=== PATIENT | female | born 1950 | race Caucasian/White ===

== ENCOUNTER 2016-12-22 04:56 | Inpatient (IN) | payer OTHER, MEDICARE ==
[2016-12-03 13:04] VITALS: BMI 35.0
--- NOTE | 2016-12-03 13:44 | PAT Medication Instructions ---
Service Date Dec 03, 2016. Current Home Medication List Aspirin (Aspirin Ec), 81 MG PO QAM Bupropion (Wellbutrin), 75 MG PO QAM Calcium/Vitamin D (Os-Cem 500 Plus D), 1 TAB PO QAM Diclofenac Sodium (Topical) (Voltaren 1% Top Gel), 1 DOSE TOP UD PRN for Pain Duloxetine Hcl (Cymbalta), 60 MG PO QAM Epinephrine (Epipen), 0.3 MG IM UD Ferrous Sulfate (Iron), 1 TAB PO QAM Levothyroxine Sodium (Synthroid), 150 MCG PO QAM Meloxicam (Mobic), 15 MG PO QAM Metoprolol Succ (Toprol Xl) (Toprol-Xl), 25 MG PO HS Multivitamin (Multivitamin), 1 TAB PO QAM Oxycodone HCl (Oxycontin), 5 MG PO QPM Pramipexole Dihydrochloride (Pramipexole Dihydrochlori), 2 MG PO QPM Pravastatin (Pravachol ), 20 MG PO HS Medication Instructions For Your Scheduled Surgery Meloxicam (Mobic), 15 MG PO QAM (check with surgeon for instructions) - Hold the following medications 24 hours prior to surgery: Diclofenac Sodium (Topical) (Voltaren 1% Top Gel), 1 DOSE TOP UD PRN for Pain - Hold the following medications the morning of surgery: Multivitamin (Multivitamin), 1 TAB PO QAM Ferrous Sulfate (Iron), 1 TAB PO QAM Calcium/Vitamin D (Os-Cem 500 Plus D), 1 TAB PO QAM - Take the following medications the morning of surgery with a sip of water: Levothyroxine Sodium (Synthroid), 150 MCG PO QAM Duloxetine Hcl (Cymbalta), 60 MG PO QAM Epinephrine (Epipen), 0.3 MG IM UD (if needed) Bupropion (Wellbutrin), 75 MG PO QAM Aspirin (Aspirin Ec), 81 MG PO QAM (continue per surgeon instructions) - Hold the following medications as scheduled the night before surgery: Pramipexole Dihydrochloride (Pramipexole Dihydrochlori), 2 MG PO QPM - Take the following medications as scheduled the night before surgery: Pravastatin (Pravachol ), 20 MG PO HS Oxycodone HCl (Oxycontin), 5 MG PO QPM Metoprolol Succ (Toprol Xl) (Toprol-Xl), 25 MG PO HS If you have any questions please call us at [phone] (Dipti Jones PA-C) or [phone] or [phone]
--- NOTE | 2016-12-03 14:12 | DIAGNOSTIC IMAGING REPORT ---
CHEST 2 VIEWS ROUTINE CLINICAL HISTORY: Preoperative evaluation. COMPARISON STUDY: Chest radiograph November 22, 2015. FINDINGS: Lung volumes are mildly diminished. There is no consolidation to suggest pneumonia. There is no evidence of pulmonary edema. Linear right lower lung opacities likely reflect atelectasis or scarring. Mild to moderate cardiomegaly is unchanged. IMPRESSION: 1. No acute cardiopulmonary findings. 2. No significant change in mild to moderate cardiomegaly. Electronically signed by: Huy Key M.D. 12/03/2016 2:11 PM Dictated Date/Time: 12/03/2016 2:10 PM
[2016-12-03 14:24] LABS: BASO % 0.4 %; BASO ABS # 0.03 K/uL (0-0.2); COMPLETE YES; EOS % 2.9 %; HEMATOCRIT 42.7 % (37-47); IG% 0.1 %; LYMPH % 21.3 %; LYMPH ABS # 1.46 K/uL (1.2-3.4); MEAN CORPUSCULAR HEMOGLOBIN 29.6 pg (25-34); MEAN CORPUSCULAR HGB CONC 33.3 g/dl (32-36); MEAN PLATELET VOLUME 9.7 fL (7.4-10.4); MONO % 8.2 %; NEUT % 67.1 %; PLATELET COUNT 217 K/uL (130-400); WHITE BLOOD COUNT 6.84 K/uL (4.8-10.8)
[2016-12-03 14:38] LABS: PARTIAL THROMBOPLASTIN RATIO 1.2; PROTHROMBIN TIME (PATIENT) 10.7 SECONDS (9.0-12.0)
[2016-12-03 14:54] LABS: CALCIUM 8.9 mg/dl (8.5-10.1); CREATININE 0.76 mg/dl (0.60-1.20); POTASSIUM 4.5 mmol/L (3.5-5.1)
[2016-12-03 15:14] LABS: URINE APPEARANCE CLEAR (CLEAR); URINE BILIRUBIN NEG (NEG); URINE COLOR YELLOW; URINE EPITHELIAL CELL AUTO >30 /lpf (0-5); URINE NITRITE NEG (NEG); URINE PH 6.5 (4.5-7.5); URINE SPECIFIC GRAVITY 1.023 (1.000-1.030); UROBILINOGEN NEG (NEG); ZZUR CULT IF INDIC CLEAN CATCH NO
[2016-12-03 15:18] LABS: MANUAL MICROSCOPIC REQUIRED? NO; REVIEW REQ? NO
--- NOTE | 2016-12-21 14:53 | HISTORY & PHYSICAL EXAMINATION ---
DATE OF ADMISSION: 12/22/2016 CHIEF COMPLAINT: Left hip pain. HISTORY OF PRESENT ILLNESS: Prachi is a 66-year-old female with a multiple-year history of pain in her left hip. The patient had her knee replaced in 2016 and then has had continued pain in the left side, over the last 6 months. She rates her pain an 8-9/10. She has had home exercise program, trochanteric injections, and anti-inflammatories without relief. She has failed conservative treatment and is now scheduled for a left hip replacement. PAST MEDICAL HISTORY: Thyroid disease and acid reflux, questionable history of TIA, hypercholesterolemia, anxiety, and history of phlebitis. She denies diabetes, heart disease or DVT. PAST SURGICAL HISTORY: Hysterectomy, left knee meniscectomy, left breast biopsy, biopsy of thyroid and left total knee arthroplasty. SOCIAL HISTORY: The patient denies alcohol or tobacco use. She lives in a single connie home. She is and retired. FAMILY HISTORY: Negative for DVT. MEDICATIONS: Synthroid 0.15 mg daily, Cymbalta 60 mg daily, Meloxicam 15 mg daily, bupropion 75 mg daily, aspirin 81 mg daily, calcium 600 plus D, multivitamin, iron 325 mg, Mirapex 1 mg 2 tablets at bedtime, pravastatin 20 mg daily, metoprolol 25 mg daily, Voltaren gel p.r.n., oxycodone p.r.n., EpiPen 0.3 mg p.r.n. ALLERGIES: None. REVIEW OF SYSTEMS: See HPI. Ten other systems reviewed, all negative. PHYSICAL EXAMINATION: VITAL SIGNS: Height 5 foot 4 inches, weight 211 pounds, BMI 36. GENERAL: This is a well-developed, well-nourished female who is alert and oriented x3. Mood and affect are appropriate. HEENT: Normocephalic, atraumatic. Mucous membranes are moist and intact. NECK: Supple without lymphadenopathy. HEART: Regular rate and rhythm without murmurs, rubs or gallops. LUNGS: Clear to auscultation without wheezes or rhonchi. ABDOMEN: Soft and nontender. Bowel sounds are equal and active. EXTREMITIES: No ecchymosis, redness or warmth. Thigh and calf are soft and nontender. She has painful range of motion. Range of motion is decreased. She is neurovascularly intact with +5/5 strength. She does have some tenderness noted over the lateral aspect of the left knee. X-RAY EXAMINATION: AP and lateral views show joint space narrowing and osteophyte formation of the left hip. IMPRESSION: Degenerative joint disease, left hip. PLAN: The patient will be admitted for a left total hip arthroplasty, direct anterior approach. We will plan on aspirin for DVT prophylaxis. The patient's PCP is Dr. Marci Navarro with [facility]. The patient will have [facility] for home physical therapy.
[2016-12-22] VITALS (10 sets, daily range): BP systolic 105–135; BP diastolic 55–75; PULSE 73–87; TEMP 36.5–36.9; O2SAT 92–99; Ht 162.6 cm; Wt 94.0 kg
[~2016-12-22] VITALS: Ht 162.6 cm; Wt 94.0 kg
[~2016-12-22 04:56] MED LIST: ASPI81TA28 PO; BUPR75TA20 PO; CALC500C70 PO; DICL1GEL12 TOP; DULO60CA44 PO; EPP3/2 IM; FERR1TAB23 PO; LEVO150T PO; MELO7.5T5 PO; METO25TA3 PO; MULT-506 PO; OXYSR/10 PO; PRAM1TAB6 PO; PRAV20TA PO
[2016-12-22] MEDS ORDERED: METOCLOPRAMIDE HCL 10 MG TAB PO SCH (06:00)
[2016-12-22] MEDS ORDERED: FAMOTIDINE 20 MG TAB PO SCH (06:00)
[2016-12-22] MEDS: LEVOTHYROXINE 150 MCG TAB PO SCH (06:00)
[2016-12-22] MEDS ORDERED: VANCOMYCIN INJ 400 MG in NSS 100ML IR SCH (06:00)
[2016-12-22] MEDS ORDERED: OXYCODONE HCL 10 MG TABCR (OXYCONTIN) PO SCH (06:00)
[2016-12-22] MEDS ORDERED: CeleBREX 200 MG CAP PO SCH (06:00)
[2016-12-22] MEDS ORDERED: GABAPENTIN 300 MG CAP PO SCH (06:00)
[2016-12-22] MEDS ORDERED: ACETAMINOPHEN 500 MG TAB PO SCH (06:00)
[2016-12-22] MEDS ORDERED: LACTATED RINGER'S 1000ML 500 ML IV ONE (06:00)
[2016-12-22] MEDS ORDERED: DEXAMETHASONE 4 MG TAB PO SCH (06:00)
[2016-12-22] MEDS ORDERED: ROPIVACAINE 5MG/ML 30 ML 150 MG, BUPIVACAINE/EPINEPHR 0.5% MPF 30 ML, KETOROLAC TROMETH... INFIL SCH ×7 (06:00)
[2016-12-22] MEDS ORDERED: LACTATED RINGER'S 1000ML IV SCH (06:00)
[2016-12-22] MEDS ORDERED: POLYMYXIN B SULFATE 100,000 UNITS in NSS 100ML IR SCH (06:00)
[2016-12-22] MEDS ORDERED: CEFAZOLIN 2000 MG/60 ML D5W 60 ML IV SCH (06:00)
[2016-12-22] MEDS ORDERED: LACTATED RINGER'S 1000ML 1,000 ML IV SCH (06:00)
[2016-12-22] MEDS ORDERED: BUPIVACAINE 0.5 % 5 MG/1 ML PF 10ML VIAL ONE (06:23)
[2016-12-22] MEDS: TRANEXAMIC ACID INJ 1,000 MG in SODIUM CHLORIDE 0.9% 100ML 100 ML IV SCH (06:30)
[2016-12-22] MEDS ORDERED: PROPOFOL IV EMULSION 10 MG/ML 20 ML VIAL IV ONE ×2 (06:40→07:48)
[2016-12-22] MEDS ORDERED: FENTANYL CITRATE INJ 50 MCG/1 ML 2 ML VIAL ONE (06:41)
[2016-12-22] MEDS ORDERED: MIDAZOLAM HCL 1 MG/ML 2ML VIAL ONE (06:41)
--- NOTE | 2016-12-22 06:44 | History & Physical Bridge Note ---
H&P Re-Evaluation Bridge Note: I have examined the patient, reviewed the History & Physical and in the interval since the performance of the History & Physical I have noted the following changes of clinical significance: No changes noted
[2016-12-22] MEDS ORDERED: ORTHO JOINT ANESTHETIC ONE (06:55)
[2016-12-22] MEDS ORDERED: BACITRACIN 50000 UNIT VIAL ONE (06:55)
[2016-12-22] MEDS ORDERED: POVIDONE-IODINE OP SOLN 30 ML BTL ONE (06:55)
[2016-12-22] MEDS ORDERED: LACTATED RINGER'S 1000ML 1,000 ML IV PRN (07:31)
[2016-12-22] MEDS ORDERED: ONDANSETRON INJ 2 MG/ML 2 ML VIAL IV PRN ×2 (07:45→08:45)
[2016-12-22] MEDS ORDERED: FENTANYL CITRATE INJ 50 MCG/1 ML 2 ML VIAL IV PRN (07:45)
[2016-12-22] MEDS ORDERED: LIDOCAINE HCL 2% 2 ML VIAL (20MG/ML) ONE (07:48)
[2016-12-22] MEDS ORDERED: PHENYLEPHRINE HCL INJ 10 MG/ML VIAL ONE (07:48)
[2016-12-22] MEDS ORDERED: ONDANSETRON INJ 2 MG/ML 2 ML VIAL ONE (08:36)
--- NOTE | 2016-12-22 08:38 | [facility] Post Operative Brief Note ---
Immediate Operative Summary Operative Date Dec 22, 2016. Pre-Operative Diagnosis Left hip degenerative joint disease Post-Operative Diagnosis Left hip degenerative joint disease OBESITY Procedure(s) Performed Left total hip arthoplasty, anterior approach, uncemented Surgeon Dr. Ran Almodovar Product Demonstrator Surgeon(s) Maribel Castano PA-C Estimated Blood Loss 150 cc Findings djd Specimens A: Left femoral head Complication(s) None Disposition Recovery Room / PACU
[2016-12-22] MEDS ORDERED: MoRPHine SULFATE 2 MG/ML CARP IV PRN (08:45)
[2016-12-22] MEDS ORDERED: TRAMADOL HCL 50 MG TAB PO PRN (08:45)
[2016-12-22] MEDS ORDERED: ZOLPIDEM TARTRATE 5 MG TAB PO PRN (08:45)
[2016-12-22] MEDS ORDERED: SOD PHOSPHATE/SOD BIPHOSPHATE ENEMA 132 ML BTL PR PRN (08:45)
[2016-12-22] MEDS ORDERED: ALUMINUM/MAGNESIUM/SIMETH (MAALOX MAX) 30 ML UDC PO PRN (08:45)
[2016-12-22] MEDS ORDERED: DiphenhydrAMINE HCL 50 MG/ML VIAL IV PRN (08:45)
[2016-12-22] MEDS ORDERED: METOCLOPRAMIDE HCL INJ 5 MG/ML 2 ML VIAL IV PRN (08:45)
[2016-12-22] MEDS ORDERED: BISACODYL 10 MG SUPP PR PRN (08:45)
[2016-12-22] MEDS ORDERED: MAGNESIUM HYDROXIDE SUSP 30 ML UDC PO PRN (08:45)
--- NOTE | 2016-12-22 09:37 | DIAGNOSTIC IMAGING REPORT ---
LEFT PELVIS/UNILATERAL HIP 1 VIEW CLINICAL HISTORY: IN PACU - A/P PELVIS and LATERAL HIP INCLUDING ALL OF IMPLANT COMPARISON: None. DISCUSSION: Anatomic alignment status post total left hip replacement. Good contact between prosthetic and the Bone. Expected soft tissue postoperative change IMPRESSION: Anatomic alignment status post total left hip replacement Electronically signed by: Danny Rosas M.D. 12/22/2016 9:36 AM Dictated Date/Time: 12/22/2016 9:35 AM
--- NOTE | 2016-12-22 09:49 | Anesthesiology Progress Note ---
Anesthesia Post Op Note Date & Time Dec 22, 2016 at 09:49 Vital Signs Pain Intensity: 0 Vital Signs Past 12 Hours Date Time Temp Pulse Resp B/P Pulse Ox O2 Delivery O2 Flow Rate FiO2 12/22/16 09:45 78 12 107/53 97 Nasal Cannula 2 12/22/16 09:35 36.2 75 19 108/54 97 Nasal Cannula 2 12/22/16 09:25 75 15 111/56 100 Mask 10 12/22/16 09:15 75 15 97/57 99 Mask 10 12/22/16 09:07 36.8 77 21 102/61 97 Mask 10 12/22/16 05:51 36.5 78 20 135/69 99 Room Air Notes Mental Status: alert / awake / arousable, participated in evaluation Pt Amnestic to Procedure: Yes Nausea / Vomiting: adequately controlled Pain: adequately controlled Airway Patency, RR, SpO2: stable & adequate BP & HR: stable & adequate Hydration State: stable & adequate Neuraxial Anesthesia: was administered, sensory block is resolving Anesthetic Complications: no major complications apparent
--- NOTE | 2016-12-22 10:01 | DIAGNOSTIC IMAGING REPORT ---
LEFT HIP UNILATERAL 1 VIEW CLINICAL HISTORY: LT ANTERIOR TOTAL joint replacement COMPARISON: None. DISCUSSION: Total left hip replacement. Good contact between prosthetic and underlying bone expected soft tissue postoperative change IMPRESSION: Anatomic alignment status post total left hip replacement Electronically signed by: Danny Rosas M.D. 12/22/2016 9:59 AM Dictated Date/Time: 12/22/2016 9:59 AM
[2016-12-22] MEDS: D5W AND 1/2NSS + 20MEQ KCL 1,000 ML IV SCH ×2 (11:42→21:43)
[2016-12-22] MEDS: KETOROLAC TROMETHAMINE 15 MG/ML VIAL IV. SCH ×2 (11:45→17:57)
[2016-12-22] MEDS: CALCIUM 600MG + VIT D 400 IU TAB PO SCH (12:39)
[2016-12-22] MEDS: DULOXETINE HCL 60 MG CAP PO SCH (12:40)
[2016-12-22] MEDS: FERROUS SULFATE 325 MG TAB PO SCH (12:40)
[2016-12-22] MEDS: MULTIVITAMIN TAB PO SCH (12:40)
[2016-12-22] MEDS: PANTOprazole SOD 40 MG TAB PO SCH (12:41)
[2016-12-22] MEDS: ACETAMINOPHEN 500 MG TAB PO SCH ×2 (13:55→21:44)
[2016-12-22] MEDS ORDERED: TRANEXAMIC ACID INJ 1,000 MG in SODIUM CHLORIDE 0.9% 100ML 100 ML IV SCH (15:00)
[2016-12-22] MEDS: OXYCODONE HCL IR 5 MG TAB (IMMEDIATE RELEASE) PO PRN (15:50)
[2016-12-22] MEDS: CEFAZOLIN IV 2,000 MG in DEXTROSE 5% 50ML 50 ML IV SCH (15:58)
--- NOTE | 2016-12-22 16:35 | OPERATIVE REPORT ---
DATE OF OPERATION: 12/22/2016 PREOPERATIVE DIAGNOSIS: Degenerative arthritis, left hip. POSTOPERATIVE DIAGNOSIS: Same. PROCEDURE: Left total hip replacement. SURGEON: Samuel Almodovar MD WATERPROOFING MIXER: DOROTEO Willard ANESTHESIA: Spinal. BLOOD LOSS: 150 mL. REPLACEMENT FLUIDS: 1800 mL of crystalloid. DRAINS: Hemovacs x1. CULTURES: None. COMPLICATIONS: None. COMPONENTS USED: [employer] hip system: Acetabulum size 50, femur size 5 standard offset, femoral head 0, neck length 32 mm. NOTE: DOROTEO Willard was present and assisted throughout due to the complicated nature of this case. She helped with preparation and set up. She first assisted throughout and personally closed the fascial, subcutaneous and skin layers and applied the postoperative dressing. DESCRIPTION: Following satisfactory spinal, the patient was supine. The left leg was placed in the traction device and the right leg in the well leg mercedes. The left leg was prepared with ChloraPrep and draped sterilely. Following a surgical time-out, an anterior approach was performed in the interval between the sartorius and tensor muscles. The circumflex femoral vessels were identified and ligated. The exposure was difficult, the patient had extremely poor body habitus, tensor muscle was extremely poor and was noted to be torn. An anterior capsulotomy was performed exposing the arthritic femoral neck and head which were removed. The acetabular self-retraining retractor was placed, acetabular preparation and reaming was completed and a 50 shell was impacted into position and secured with a dome screw, cross-linked polyethylene liner was placed after local anesthetic and irrigation. The femur was placed into position of external rotation, extension and adduction. The femoral canal was identified and prepared up to the size 5. Exposure was difficult because of the patient's large belly and extremely obese body habitus. Fluoroscopy confirmed good fit and fill of the proximal canal and moravian of leg lengths using anatomic landmarks. The hip was dislocated, the trial component was removed, the final implant was placed and fluoroscopy confirmed reduction. A Betadine soak was performed. The Betadine was irrigated and the drain was placed. The capsule was closed with 1-0 Vicryl interrupted. The fascia with 1-0 Vicryl running. After irrigation, the fatty layer was closed with 1 and 2-0 Vicryl and the skin was closed with a running subcuticular stitch of 3-0 V-Loc. Dermabond and a dry dressing were applied. The patient was returned to her bed in stable condition. I attest to the content of the Intraoperative Record and any orders documented therein. Any exceptio ns are noted below.
[2016-12-22] MEDS: PRAMIPEXOLE DIHYDROCHLORIDE 0.5 MG TAB PO SCH (17:23)
[2016-12-22] MEDS: ASPIRIN 81 MG ECTAB PO SCH (21:43)
[2016-12-22] MEDS: PRAVASTATIN SOD 20 MG TAB PO SCH (21:43)
[2016-12-22] MEDS: SENNA 8.6 MG TAB PO SCH (21:44)
[2016-12-22] MEDS: METOPROLOL SUCC 25MG EXT REL TAB PO SCH (21:44)
[2016-12-23] VITALS (7 sets, daily range): BP systolic 104–146; BP diastolic 63–96; PULSE 71–86; TEMP 36.5–37.1; O2SAT 92–97
[2016-12-23] MEDS: KETOROLAC TROMETHAMINE 15 MG/ML VIAL IV. SCH ×4 (00:14→17:26)
[2016-12-23] MEDS: CEFAZOLIN IV 2,000 MG in DEXTROSE 5% 50ML 50 ML IV SCH (00:14)
[2016-12-23] MEDS: OXYCODONE HCL IR 5 MG TAB (IMMEDIATE RELEASE) PO PRN ×5 (00:15→19:14)
[2016-12-23] MEDS: LEVOTHYROXINE 150 MCG TAB PO SCH (06:06)
[2016-12-23] MEDS: D5W AND 1/2NSS + 20MEQ KCL 1,000 ML IV SCH (06:07)
[2016-12-23] MEDS: ACETAMINOPHEN 500 MG TAB PO SCH ×3 (06:07→21:49)
[2016-12-23 07:47] LABS: BASO % 0.1 %; BASO ABS # 0.02 K/uL (0-0.2); COMPLETE YES; EOS % 0.2 %; IG% 0.2 %; LYMPH % 9.3 %; LYMPH ABS # 1.26 K/uL (1.2-3.4); MEAN CELL VOLUME 87.5 fL (80-100); MEAN CORPUSCULAR HEMOGLOBIN 29.1 pg (25-34); MEAN CORPUSCULAR HGB CONC 33.2 g/dl (32-36); MEAN PLATELET VOLUME 9.5 fL (7.4-10.4); NEUT % 83.2 %; PLATELET COUNT 213 K/uL (130-400); RED BLOOD COUNT 4.23 M/uL (4.2-5.4)
--- NOTE | 2016-12-23 08:08 | Orthopedic Progress Note ---
Orthopedic Progress Note Date of Service Dec 23, 2016. Subjective Post OP Day: 1 Reports: feeling well, Denies: SOB, calf pain, chest pain, light headedness, nausea / vomiting Objective calves soft nontender, N/V intact, hip located, dressing C/D/I (AQUACEL), A&O x3 , toes mobile, hemovac drainage (330/80CC PER SHIFT) Date Time Temp Pulse Resp B/P Pulse Ox O2 Delivery O2 Flow Rate FiO2 12/23/16 03:49 36.6 73 16 104/63 96 Room Air 12/23/16 00:10 Room Air 12/22/16 23:30 36.9 80 16 115/66 94 Room Air 12/22/16 21:35 85 117/68 12/22/16 16:00 Room Air 12/22/16 15:34 36.5 82 16 113/55 92 Room Air 12/22/16 12:54 83 16 123/68 92 Room Air 12/22/16 11:53 87 16 105/66 96 Nasal Cannula 2.0 12/22/16 10:53 73 16 108/69 99 Nasal Cannula 2.0 12/22/16 10:25 75 16 122/75 99 Nasal Cannula 2.0 12/22/16 09:55 97 Nasal Cannula 2.0 12/22/16 09:55 97 Nasal Cannula 2.0 12/22/16 09:55 36.5 82 16 105/73 97 Nasal Cannula 2.0 12/22/16 09:45 78 12 107/53 97 Nasal Cannula 2 12/22/16 09:35 36.2 75 19 108/54 97 Nasal Cannula 2 12/22/16 09:25 75 15 111/56 100 Mask 10 12/22/16 09:15 75 15 97/57 99 Mask 10 12/22/16 09:07 36.8 77 21 102/61 97 Mask 10 Laboratory Results 24 Hours: Test 12/23/16 07:07 White Blood Count 13.60 K/uL Red Blood Count 4.23 M/uL Hemoglobin 12.3 g/dL Hematocrit 37.0 % Mean Corpuscular Volume 87.5 fL Mean Corpuscular Hemoglobin 29.1 pg Mean Corpuscular Hemoglobin Concent 33.2 g/dl Platelet Count 213 K/uL Mean Platelet Volume 9.5 fL Neutrophils (%) (Auto) 83.2 % Lymphocytes (%) (Auto) 9.3 % Monocytes (%) (Auto) 7.0 % Eosinophils (%) (Auto) 0.2 % Basophils (%) (Auto) 0.1 % Neutrophils # (Auto) 11.31 K/uL Lymphocytes # (Auto) 1.26 K/uL Monocytes # (Auto) 0.95 K/uL Eosinophils # (Auto) 0.03 K/uL Basophils # (Auto) 0.02 K/uL Assessment & Plan Assessment: POD#1 SP LEFT CHELSEA, DIRECT ANTERIOR Inhouse Planning Pain Management: Celebrex, PO Tylenol, Oxy IR DVT Prophylaxis: TEDs, SCDs, ASA Discharge Planning Discharge Planning: home with home health ([facility])
[2016-12-23] MEDS ORDERED: SNK PO (08:11)
[2016-12-23] MEDS ORDERED: RXC5 PO (08:11)
[2016-12-23] MEDS ORDERED: ONDA8TAB6 PO (08:11)
[2016-12-23] MEDS ORDERED: ASPI81TA28 PO (08:11)
[2016-12-23] MEDS ORDERED: CLB200 PO (08:11)
[2016-12-23] MEDS ORDERED: ACET-1138 PO (08:11)
[2016-12-23 08:12] LABS: CALCIUM 8.7 mg/dl (8.5-10.1); CREATININE 0.67 mg/dl (0.60-1.20); POTASSIUM 4.4 mmol/L (3.5-5.1)
--- NOTE | 2016-12-23 08:13 | Discharge Instructions ---
Discharge Instructions Admission Reason for Admission: Left Hip Degenerative Arthritis Discharge Discharge Diagnosis / Problem: SP LEFT CHELSEA Discharge Goals Goal(s): Decrease discomfort, Improve function, Increase independence Activity Recommendations Activity Limitations: per Instructions/Follow-up section . Instructions / Follow-Up Instructions / Follow-Up ACTIVITY RECOMMENDATIONS: SELF CARE INSTRUCTIONS AFTER TOTAL HIP REPLACEMENT : Direct Anterior Approach Until the incision and soft tissues around your hip have healed, there is a possibility that the hip prosthesis could dislocate. A. Hip flexion ( Up & Down out of chair or steps ) may be difficult. This is normal. B. Numbness in front of the thigh is also normal for a few weeks. C. Use hand rails when walking on stairs. D. Wear low heeled shoes with non-slip soles. E. Be sure that your floors are free of things that could trip you - throw rugs , electrical cords, small objects. Avoid wet and waxed floors, especially with crutches and canes. F. Try to walk several times a day with rest periods between. G. Continue with all the exercises taught to you in the hospital. Again, make walking a part of your daily routine. SPECIAL CARE INSTRUCTIONS: VERY IMPORTANT TO READ AND REVIEW A. You may still be at risk for phlebitis and blood clots. 1. Wear surgical stockings (ABEBA hose) for 2 weeks after surgery to improve circulation and reduce swelling. 2. Take Aspirin 81mg twice daily for 4 weeks or as directed by your doctor. This is your blood thinner. 3. High risk patients may be prescribed a stronger blood thinner if necessary. 4. If you are on Coumadin normally, your family doctor/parimutuel cashier should monitor your blood work. Expect a phone call the day of or the day after bloodwork is drawn to adjust your dosage. B. You must take antibiotics before having dental work, bladder, bowel and other surgery. Your doctor will provide you with a permanent card to carry describing precautions. C. Call [facility] if you have a fever, redness or swelling around the incision, cloudy drainage from incision, or sudden increase in pain in your hip, not relieved by your regular pain medication. D. Please call the office at if you have any concerns or questions about your operation or recovery. * YOU MAY SHOWER, NO TUB BATHS UNTIL CLEARED BY YOUR DOCTOR. - Keep an extra close eye on the top portion of your incision. Be sure to keep clean & dry. * WEAR ABEBA HOSE 20 HOURS PER DAY FOR 2 WEEKS. * YOU MAY PROGRESS FROM A WALKER, TO A CANE, TO INDEPENDENT AT YOUR OWN PACE. * MOST PATIENTS WILL HAVE HOME NURSING FOR THERAPY. IF YOU DECIDE TO DO OUTPATIENT PHYSICAL THERAPY, PLEASE SCHEDULE THIS 3 TIMES PER WEEK. KEEP SURGICAL DRESSING IN PLACE X 7 DAYS. AFTER 7 DAYS, MAY REMOVE AND FOLLOW INSTRUCTIONS BELOW. * DERMABOND Prineo- This is a mesh tape dressing that is covered with glue. It should remain in place until the incision is properly healed, usually 10-14 days. This dressing is designed to naturally slough off. You may trim the excess mesh tape as it peels off. Incision may be briefly wet in a shower. Dry immediately by blotting with a clean, dry towel. Do not bath or swim until instructed by your doctor. Do not scratch, rub, or pick at the dressing. Do not apply any topical ointments or lotions until dressing is completely removed and/or instructed by your doctor. There may be a small piece of suture material at one end of your incision. Do not pull or trim this. If it is bothersome or catching on clothing, you may cover it with a band-aid. FOLLOW UP VISIT: If appointment is not already scheduled: Please call [facility] to make a follow-up appointment for 2 weeks after your surgery at . Current Hospital Diet Patient's current hospital diet: Regular Diet Discharge Diet Recommended Diet: Regular Diet Procedures Procedures Performed: Left total hip arthoplasty, anterior approach, uncemented Pending Studies Studies pending at discharge: no Laboratory Results Lipid Panel Test 09/28/16 18:02 Range/Units Triglycerides Level 110 0-150 mg/dl Cholesterol Level 203 H 0-200 mg/dl HDL Cholesterol 70 mg/dl Cholesterol/HDL Ratio 2.9 LDL Cholesterol, Calculated 111 mg/dl Medical Emergencies . Who to Call and When: Medical Emergencies: If at any time you feel your situation is an emergency, please call 911 immediately. . Non-Emergent Contact Non-Emergency issues call your: Primary Care Provider . "Provider Documentation" section prepared by Lolis Castano. VTE Core Measure Inpt VTE Proph given/why not?: Other Anticoagulation, T.E.D. Stockings, SCD's
[2016-12-23] MEDS: CALCIUM 600MG + VIT D 400 IU TAB PO SCH (09:13)
[2016-12-23] MEDS: ASPIRIN 81 MG ECTAB PO SCH ×2 (09:14→21:21)
[2016-12-23] MEDS: DULOXETINE HCL 60 MG CAP PO SCH (09:14)
[2016-12-23] MEDS: MULTIVITAMIN TAB PO SCH (09:14)
[2016-12-23] MEDS: FERROUS SULFATE 325 MG TAB PO SCH (09:14)
[2016-12-23] MEDS: PANTOprazole SOD 40 MG TAB PO SCH (09:15)
--- NOTE | 2016-12-23 14:14 | Anesthesiology Progress Note ---
Anesthesia Post Op Note Date & Time Dec 23, 2016 at 14:13 Vital Signs Pain Intensity: 5.0 Vital Signs Past 12 Hours Date Time Temp Pulse Resp B/P Pulse Ox O2 Delivery O2 Flow Rate FiO2 12/23/16 12:00 36.7 71 20 145/75 94 Room Air 12/23/16 11:34 95 Room Air 12/23/16 08:00 Room Air 12/23/16 07:40 36.5 72 18 146/96 97 Room Air 12/23/16 03:49 36.6 73 16 104/63 96 Room Air Notes Mental Status: alert / awake / arousable, participated in evaluation Pt Amnestic to Procedure: Yes Nausea / Vomiting: adequately controlled Pain: adequately controlled Airway Patency, RR, SpO2: stable & adequate BP & HR: stable & adequate Hydration State: stable & adequate Neuraxial Anesthesia: was administered, sensory block resolved Anesthetic Complications: no major complications apparent
[2016-12-23] MEDS: PRAMIPEXOLE DIHYDROCHLORIDE 0.5 MG TAB PO SCH (17:26)
[2016-12-23] MEDS: PRAVASTATIN SOD 20 MG TAB PO SCH (21:21)
[2016-12-23] MEDS: METOPROLOL SUCC 25MG EXT REL TAB PO SCH (21:21)
[2016-12-23] MEDS: SENNA 8.6 MG TAB PO SCH (21:21)
[2016-12-24] MEDS: KETOROLAC TROMETHAMINE 15 MG/ML VIAL IV. SCH ×2 (00:13→05:29)
[2016-12-24] MEDS: OXYCODONE HCL IR 5 MG TAB (IMMEDIATE RELEASE) PO PRN ×3 (00:13→10:31)
[2016-12-24] MEDS: ACETAMINOPHEN 500 MG TAB PO SCH (05:30)
[2016-12-24] MEDS: LEVOTHYROXINE 150 MCG TAB PO SCH (05:30)
[2016-12-24 07:05] VITALS: BP 111/67; PULSE 74; TEMP 36.6; O2SAT 89
--- NOTE | 2016-12-24 07:58 | Orthopedic Progress Note ---
Orthopedic Progress Note Date of Service Dec 24, 2016. Subjective Post OP Day: 2 Reports: feeling well, pain controlled w PO medications Objective calves soft nontender, N/V intact, hip located, incision C/D/I, A&O x3, toes mobile Date Time Temp Pulse Resp B/P Pulse Ox O2 Delivery O2 Flow Rate FiO2 12/24/16 00:45 Room Air 12/23/16 23:10 36.7 76 16 111/65 95 Room Air 12/23/16 21:19 86 112/64 12/23/16 16:00 Room Air 12/23/16 15:05 36.6 83 16 114/65 92 Room Air 12/23/16 12:00 36.7 71 20 145/75 94 Room Air 12/23/16 11:34 95 Room Air 12/23/16 08:00 Room Air Assessment & Plan Assessment: POD# 2 SP LEFT CHELSEA, DIRECT ANTERIOR Inhouse Planning Pain Management: Celebrex, PO Tylenol, Oxy IR DVT Prophylaxis: TEDs, SCDs, ASA Discharge Planning Discharge Planning: home with home health ([facility])
[2016-12-24] MEDS: CALCIUM 600MG + VIT D 400 IU TAB PO SCH (09:23)
[2016-12-24] MEDS: FERROUS SULFATE 325 MG TAB PO SCH (09:24)
[2016-12-24] MEDS: MULTIVITAMIN TAB PO SCH (09:24)
[2016-12-24] MEDS: DULOXETINE HCL 60 MG CAP PO SCH (09:24)
[2016-12-24] MEDS: ASPIRIN 81 MG ECTAB PO SCH (09:24)
[2016-12-24] MEDS: PANTOprazole SOD 40 MG TAB PO SCH (09:25)
[2016-12-24 09:41] VITALS: O2SAT 94
[2016-12-24 10:34] VITALS: BP 111/67; PULSE 74; TEMP 36.6; O2SAT 94
[2016-12-24] MEDS ORDERED: CeleBREX 200 MG CAP PO SCH (21:00)
--- NOTE | 2017-01-04 14:14 | DISCHARGE SUMMARY ---
DISCHARGE DIAGNOSIS: Degenerative joint disease, left hip. SECONDARY DIAGNOSIS: None. CONSULTS: None. COMPLICATIONS: None. PROCEDURE: The patient underwent a left total hip arthroplasty with Dr. Almodovar on 12/22/2016. BRIEF HISTORY: Please see previously dictated history and physical. HOSPITAL SUMMARY: The patient was admitted on the above day for the above procedure. Procedure went without complication. Postop day #1, the patient was feeling well without complaints. She denied chest pain or shortness of breath. Aquacel dressing was clean, dry and intact. She was neurovascularly intact. Calves were soft and nontender. Hemovac drained 330 and 80 mL per shift. Hemoglobin was 12.3. The patient began physical therapy per protocol. Postop day #2, the patient continued to improve. Vital signs were stable. She was afebrile. She progressed with physical therapy and was discharged home later that day in stable condition. For further review, please see the chart. Lab, x-ray data and discharge instructions as per chart.
[2017-06-11] MEDS ORDERED: MELO15TA10 PO (08:26)
[2017-06-11] MEDS ORDERED: OMEP20CA9 PO (08:26)
[2017-06-11] MEDS ORDERED: PREG1CAP70 PO (08:26)
[2017-06-11] MEDS ORDERED: PRAM0.129 PO (08:26)
== END 2016-12-24 12:27 | disposition home health service (06) | DRG 470 ==
LOC: ENRESERVDT → ENRESERVTM → C.ACU 04:56 → C.3E 06:15
PROVIDERS: ADMIT Orthopaedic Surgery; ATTEND Orthopaedic Surgery
PROC: 0SRB04A Replacement of Left Hip Joint with Ceramic on Polyethylene Synthetic Substitute, Uncemented, Open Approach (ICD-10-PCS; principal; 2016-12-22 07:15)
DX: M16.12 Unilateral primary osteoarthritis, left hip (principal); K21.9 Gastro-esophageal reflux disease without esophagitis; E78.00 Pure hypercholesterolemia, unspecified; G62.9 Polyneuropathy, unspecified; E07.9 Disorder of thyroid, unspecified; G25.81 Restless legs syndrome; F41.9 Anxiety disorder, unspecified; G43.909 Migraine, unspecified, not intractable, without status migrainosus; G47.33 Obstructive sleep apnea (adult) (pediatric); E66.9 Obesity, unspecified; Z68.35 Body mass index [BMI] 35.0-35.9, adult; Z99.89 Dependence on other enabling machines and devices; Z96.652 Presence of left artificial knee joint; Z79.1 Long term (current) use of non-steroidal anti-inflammatories (NSAID); Z79.82 Long term (current) use of aspirin; Z79.899 Other long term (current) drug therapy; Z79.891 Long term (current) use of opiate analgesic; Z98.890 Other specified postprocedural states

== ENCOUNTER → 2017-06-11 | Outpatient (CLI) | payer OTHER, MEDICARE ==
[~2017-06-11] MED LIST changes: +ACET-1138 PO; +CLB200 PO; +MELO15TA10 PO; -MELO7.5T5 PO; +OMEP20CA9 PO; +ONDA8TAB6 PO; +PRAM0.129 PO; +PREG1CAP70 PO; +RXC5 PO; +SNK PO
--- NOTE | 2017-06-11 09:17 | DIAGNOSTIC IMAGING REPORT ---
LUMBAR SPINE 5 VIEWS HISTORY: Left leg pain. LUMBAGO COMPARISON: None. FINDINGS: There is no fracture. 8 mm of anterolisthesis of L5 on S1. Moderate disc space narrowing at L5-S1 and mild disc space narrowing at L3-L4 and L4-L5. Mild degenerative disc disease within the lower thoracic spine. Left total hip arthroplasty. Mild levoscoliosis. Moderate facet degenerative changes within the mid to lower lumbar spine. IMPRESSION: 1. No fractures within the lumbar spine. 2. Grade I/II anterolisthesis of L5 on S1. 3. Mild to moderate degenerative changes within the mid to lower lumbar spine as described above. Electronically signed by: Luis Lawton M.D. 06/11/2017 9:16 AM Dictated Date/Time: 06/11/2017 9:14 AM
--- NOTE | 2017-06-11 13:11 | DIAGNOSTIC IMAGING REPORT ---
LUMBAR SPINE FLEX/EXT ONLY CLINICAL HISTORY: PAIN pain COMPARISON STUDY: None FINDINGS: Flexion-extension views of the lumbar spine were performed. There is a grade 1 anterolisthesis of L5 on S1. Maximum subluxation is 8 mm. This is stable in flexion and extension. There is no evidence for positional variation. Mild degenerative disc changes noted throughout. IMPRESSION: Grade 1 anterolisthesis L5 on S1 showing no positional variation with flexion or extension. The above report was generated using voice recognition software. It may contain grammatical, syntax or spelling errors. Electronically signed by: Danny Rosas M.D. 06/11/2017 1:10 PM Dictated Date/Time: 06/11/2017 1:08 PM
== END | disposition home or self-care (01) ==
LOC: C.RADBC 08:53
PROVIDERS: ATTEND Anesthesiology
DX: M54.5 Low back pain (principal)

== ENCOUNTER → 2017-06-14 | Outpatient (CLI) | payer OTHER, MEDICARE ==
[~2017-06-14] MED LIST changes: -BUPR75TA20 PO; -CLB200 PO; -MULT-506 PO; -ONDA8TAB6 PO; -OXYSR/10 PO; -PRAM1TAB6 PO; -RXC5 PO; -SNK PO
--- NOTE | 2017-06-14 17:20 | DIAGNOSTIC IMAGING REPORT ---
LEFT LOWER EXTREMITY VENOUS DOPPLER HISTORY: Left KNEE PAIN, EDEMA COMPARISON STUDY: None. FINDINGS: There is normal compressibility, flow, and augmentation within the left lower extremity deep venous system. IMPRESSION: No DVT within the left lower extremity. Electronically signed by: Luis Lawton M.D. 06/14/2017 5:19 PM Dictated Date/Time: 06/14/2017 5:18 PM
== END | disposition home or self-care (01) ==
LOC: C.ULTR 16:48
PROVIDERS: ATTEND Family Medicine
DX: R60.9 Edema, unspecified (principal); M25.562 Pain in left knee

== ENCOUNTER → 2017-06-22 | Outpatient (CLI) | payer OTHER, MEDICARE ==
--- NOTE | 2017-06-22 15:15 | DIAGNOSTIC IMAGING REPORT ---
LUMBAR SPINE W/O CONTRAST CLINICAL HISTORY: 67 years-old Female with L L4 RADICULOPATHY, LUMBAGO. Chronic low back pain with numbness into the left lower extremity COMPARISON: Lumbar spine radiographs 06/11/2017. TECHNIQUE: Multiplanar, multi sequence MRI of the lumbar spine was performed without intravenous contrast. FINDINGS: Unchanged 8 mm anterolisthesis of L5 on S1, likely secondary to underlying facet arthropathy. There is a T1 and T2 hyperintense lesion involving the L3 vertebral body, 2.4 x 2.6 x 1.4 cm suggesting hemangioma or focal fatty sparing. Similar appearing lesions are noted at T12 and L1 There is no focal bone marrow edema, fracture or acute compression deformity. Signal within the cord is within normal limits. Conus medullaris terminates at T12-L1. The imaged intra-abdominal, intrapelvic and paraspinal structures demonstrate no focal abnormality. No abdominal aortic aneurysm. T11-T12: The sagittal imaging alone, intervertebral disc space narrowing is noted with posterior disc osteophyte complex and facet arthrosis causing mild central canal narrowing. No significant foraminal stenosis identified. T12-L1: No central canal or neural foraminal stenosis. L1-L2: Mild intervertebral disc space narrowing with facet arthrosis and small facet effusions. Broad-based posterior annular disc bulge is present. No significant central canal or foraminal narrowing. L2-L3: Mild intervertebral disc space narrowing with broad-based posterior disc bulge, ligamentum flavum redundancy, moderate facet arthrosis and small facet effusions cause mild central canal and mild bilateral foraminal narrowing. L3-L4: Mild to moderate intervertebral disc space narrowing with circumferential annular disc bulge, ligamentum flavum redundancy and moderate facet arthrosis. There is mild to moderate central canal, moderate right and mild left foraminal stenosis. L4-L5: Mild to moderate intervertebral disc space narrowing is present with circumferential annular disc bulge and central/right paracentral disc extrusion extending 7 mm cranially. This effaces the ventral thecal sac narrowing the AP dimension of the thecal sac to 6 mm causing moderate to severe central canal, moderate to severe right lateral recess, mild right foraminal and [id number] left foraminal stenosis.. This appears to abut the adjacent L5 nerve root. Additionally, there is ligamentum flavum redundancy and moderate to severe facet arthrosis. L5-S1: Moderate intervertebral disc space narrowing with posterior disc space uncovering and circumferential annular disc bulge is present with probable small annular fissure, ligamentum flavum redundancy and severe facet arthrosis. There is mild bilateral foraminal narrowing without significant central canal stenosis. IMPRESSION: 1. At L4-L5, intervertebral disc space narrowing is present with circumferential annular disc bulge and central/right paracentral disc extrusion extending 7 mm cranially. This causes moderate to severe central canal, moderate to severe right lateral recess, mild right foraminal and [id number] left foraminal stenosis. This appears to abut the adjacent right L5 nerve root. Additionally, there is ligamentum flavum redundancy and moderate to severe facet arthrosis at this interspace. 2. Broad-based posterior disc osteophyte complex at T11-T12 causes mild central canal narrowing. 3. Mild to moderate central canal stenosis at L3-L4 secondary to combination of disc disease and facet arthropathy. The above report was generated using voice recognition software. It may contain grammatical, syntax or spelling errors. Electronically signed by: Sy Allen M.D. 06/22/2017 3:14 PM Dictated Date/Time: 06/22/2017 2:34 PM
== END | disposition home or self-care (01) ==
LOC: C.MRIBC 13:41
PROVIDERS: ATTEND Anesthesiology
DX: M54.16 Radiculopathy, lumbar region (principal)

== ENCOUNTER → 2017-12-13 | Outpatient (CLI) | payer OTHER, MEDICARE ==
[~2017-12-13] MED LIST changes: +GABA-113 PO; +KRIL1CAP7; +PRAM0.1212 PO; -PRAM0.129 PO; -PREG1CAP70 PO
[2017-12-13 13:42] LABS: BASO ABS # 0.07 K/uL (0-0.2); EOS % 3.1 %; EOS ABS # 0.21 K/uL (0-0.5); HEMATOCRIT 44.9 % (37-47); HEMOGLOBIN 14.6 g/dL (12.0-16.0); IG# 0.02 K/uL (0.00-0.02); LYMPH % 21.2 %; LYMPH ABS # 1.42 K/uL (1.2-3.4); MEAN CELL VOLUME 89.6 fL (80-100); MEAN CORPUSCULAR HEMOGLOBIN 29.1 pg (25-34); MEAN CORPUSCULAR HGB CONC 32.5 g/dl (32-36); MEAN PLATELET VOLUME 9.6 fL (7.4-10.4); MONO % 8.2 %; MONO ABS # 0.55 K/uL (0.11-0.59); NEUT % 66.2 %; NEUT ABS # 4.42 K/uL (1.4-6.5); PLATELET COUNT 216 K/uL (130-400); RED CELL DISTRIBUTION WIDTH SD 49.3 fL (36.4-46.3); WHITE BLOOD COUNT 6.69 K/uL (4.8-10.8)
== END ==
LOC: C.LABBC 09:20
PROVIDERS: ATTEND Family Medicine
DX: E78.5 Hyperlipidemia, unspecified (principal); E07.9 Disorder of thyroid, unspecified; M79.2 Neuralgia and neuritis, unspecified

== ENCOUNTER → 2017-12-22 | Outpatient (CLI) | payer OTHER, MEDICARE ==
--- NOTE | 2017-12-22 15:55 | MAMMOGRAPHY REPORT ---
BILATERAL DIGITAL SCREENING MAMMOGRAM TOMOSYNTHESIS WITH CAD: 12/22/2017 CLINICAL HISTORY: Routine screening. TECHNIQUE: Breast tomosynthesis in addition to standard 2D mammography was performed. Current study was also evaluated with a Computer Aided Detection (CAD) system. COMPARISON: Comparison is made to exams dated: 09/04/2015 mammogram, 08/28/2014 mammogram, 07/07/2013 mammogram, 06/15/2012 mammogram, 06/03/2011 mammogram, and 09/30/2015 mammogram. BREAST COMPOSITION: There are scattered areas of fibroglandular density in both breasts. FINDINGS: There is stable asymmetry in the subareolar left breast on the CC view, scattered benign-ap pearing calcifications and 2 stable biopsy marker clips in the left breast. No suspicious mass, arch itectural distortion or cluster of suspicious microcalcifications is seen. IMPRESSION: ACR BI-RADS CATEGORY 1: NEGATIVE There is no mammographic evidence of malignancy. A 1 year screening mammogram is recommended. The pa tient will receive written notification of the results. Approximately 10% of breast cancers are not detected with mammography. A negative mammographic report should not delay biopsy if a clinically suggestive mass is present. Mamie Dang M.D. ay/:12/22/2017 12:50:12 Web Ui Developer: Kyaw EVANS)([place]), [facility] letter sent: Normal 1/2 BI-RADS Code: ACR BI-RADS Category 1: Negative
== END | disposition home or self-care (01) ==
LOC: C.MAMM 11:31
PROVIDERS: ATTEND Family Medicine
DX: Z12.31 Encounter for screening mammogram for malignant neoplasm of breast (principal)

== ENCOUNTER → 2018-02-28 | Outpatient (CLI) | payer OTHER, MEDICARE ==
[~2018-02-28] MED LIST changes: -GABA-113 PO; -MELO15TA10 PO; -PRAV20TA PO
== END | disposition home or self-care (01) ==
LOC: C.MAMM 15:07
PROVIDERS: ATTEND Family Medicine
DX: R73.9 Hyperglycemia, unspecified (principal); G47.33 Obstructive sleep apnea (adult) (pediatric); E78.5 Hyperlipidemia, unspecified; R00.0 Tachycardia, unspecified; G45.9 Transient cerebral ischemic attack, unspecified; M79.2 Neuralgia and neuritis, unspecified

== ENCOUNTER → 2018-03-04 | Outpatient (CLI) | payer OTHER, MEDICARE ==
[~2018-03-04] MED LIST changes: +ATOR-24 PO
--- NOTE | 2018-03-04 12:06 | DIAGNOSTIC IMAGING REPORT ---
ULTRASOUND L VENOUS DOPP LOWER EXT UNILAT CLINICAL HISTORY: Left leg pain COMPARISON STUDY: 01/12/2017 FINDINGS: No thrombus was visualized within the deep system. The common femoral superficial femoral popliteal and proximal trifurcation veins were patent. There is a superficial thrombus within the small saphenous vein extending from the mid calf to the popliteal confluence. The thrombus measures approximately 7 mm in diameter. IMPRESSION: 1. No evidence of left lower extremity DVT 2. Superficial thrombus involving the small saphenous vein extending from the mid calf to the popliteal confluence Electronically signed by: Jose Manuel Manzanares M.D. 03/04/2018 12:04 PM Dictated Date/Time: 03/04/2018 12:02 PM
== END | disposition home or self-care (01) ==
LOC: C.ULTRBC 11:19
PROVIDERS: ATTEND Anesthesiology
DX: M79.662 Pain in left lower leg (principal); M79.652 Pain in left thigh; I82.812 Embolism and thrombosis of superficial veins of left lower extremity

== ENCOUNTER 2021-04-24 13:52 | Inpatient (IN) ==
[2021-04-24] MEDS ORDERED: ALUMINUM/MAGNESIUM SUSP 30 ML UDC PO PRN (15:53)
[2021-04-24] MEDS ORDERED: POLYETHYLENE (MIRALAX) 17 GM PACK PO PRN (15:53)
[2021-04-24] MEDS ORDERED: ONDANSETRON INJ 2 MG/ML 2 ML VIAL IV PRN (15:53)
[2021-04-24] MEDS ORDERED: MoRPHine SULFATE 2 MG/ML CARP IV PRN ×2 (16:56→17:30)
[2021-04-24] MEDS ORDERED: DICLOFENAC SOD 1% GEL 100 GM TUBE EXT PRN (17:05)
[2021-04-24] MEDS ORDERED: LORazepam 0.5 MG/1 ML VIAL IV PRN (17:05)
[2021-04-24] MEDS ORDERED: LORazepam 0.5 MG TAB PO PRN (17:06)
--- NOTE | 2021-04-24 17:22 | History & Physical Report ---
Date of Service April 24, 2021 Assessment & Plan (1) Right lumbar radiculopathy: Pt is too uncomfortable to sleep at home, she has history of previous lumbar issues, will recheck mri, inflammatory markers, and lyme use scheduled tylenol, topical voltaren continue meloxicam and use neurontin p meet cymbalta this pain is not completely consistent with lumbar radiculopathy but is intractable and life altering for patient pt is known to pain management and consider if not conclusive (2) Hypertension: continue losartan/hctz (3) Nocturnal hypoxemia: pt is supposed to wear cpap or Nippv, will check nocturnal oximetry to determine how significant this is (4) Peripheral neuropathy: unclear if from the lumbar spine issues, checking lyme, not significant will check aic in am (5) Hypothyroidism: continues on synthroid check tsh (6) Hyperlipidemia: Pt has fatty liver seen on imaging, did recently change to vegan diet and lost 25# Admission and Anticipated Discharge Date Admission Date: April 24, 2021 History of Present Illness Primary Care Provider: Marci Navarro, Pt admitted with intractable right leg pain in a radicular distribution. This pt has a history of lumbar spinal stenosis and has previously had a procedure to have a microdiscectomy L4-5, a most recent MRI 10/05/20 shows foraminal issues L3-4 on the left and bilaterally L4-5-s1. she will have repeat imaging on admission. Pain is not clear cut but does travel in a dermatomal distribution more so in a L3 or L4 distribution but not involving the foot, some exacerbation at the hamstring insertion and had a prominence in the right popliteal fossa that recently has had an ultrasound attempted drainage that was unsuccessful, did have a mri of her knee, which shows joint issues including meniscus issues medial greater than lateral, and a Doppler was negative for DVT. After the doppler 04/23/21 the pt had a sleepless night due to pain tried topical volatren and compression stocking without help and presented with intractable pain. she has little left leg symptoms, is using meloxicam, voltaren topical, cymbalta and neurontin for attempts at pain control she has not loss bowel or bladder control but does state she feels incomplete emptying of the bladder Allergies Allergy/AdvReac Type Severity Reaction Status Date / Time bee venom protein (honey bee) Allergy Severe ANAPHYLAXIS Verified 04/23/21 13:14 Home Medications Medication Instructions Recorded Confirmed Type acetaminophen 500 mg tablet 1,000 mg PO Q8H PRN tab 07/25/18 04/24/21 History calcium carbonate-vitamin D3 500 1 tab PO QAM tab 07/25/18 04/24/21 History mg (1,250 mg)-600 unit tablet diclofenac sodium 1 % topical gel 2 gm TOP QID PRN 07/25/18 04/24/21 History epinephrine 0.3 mg/0.3 mL 0.3 mg IM Q15M PRN 07/25/18 04/24/21 History injection, auto-injector krill 1 cap PO QAM cap 07/25/18 04/24/21 History sdq-[id number]-xjp-gkj-du3-uhi-astax 1,500 mg-165 mg-67.5 mg capsule levothyroxine 150 mcg tablet 150 mcg PO QAM 07/25/18 04/24/21 History omeprazole 20 mg capsule,delayed 20 mg PO QAM 07/25/18 04/24/21 History release meloxicam 7.5 mg tablet 7.5 mg PO DAILY #30 tab 10/02/19 04/24/21 Rx aspirin 81 mg tablet,delayed 81 mg PO DAILY 12/04/19 04/24/21 History release cholecalciferol (vitamin D3) 125 125 mcg PO DAILY 10/04/20 04/24/21 History mcg (5,000 unit) capsule losartan 50 mg-hydrochlorothiazide 1 tab PO DAILY 10/04/20 04/24/21 History 12.5 mg tablet duloxetine 60 mg capsule,delayed 120 mg PO QAM cap 12/25/20 04/24/21 History release gabapentin 300 mg capsule 300 mg PO .COMPLEX cap 12/25/20 04/24/21 History pramipexole 0.125 mg tablet 2 mg PO QPM tab 12/25/20 04/24/21 History trazodone 100 mg tablet 100 mg PO DAILY 02/12/21 04/24/21 History Past Med/Surg History Medical History (Updated 04/25/21 @ 11:18 by Biju Jones PA-C) Acid reflux Chronic knee pain after total replacement of left knee joint Classic migraine with aura Fibromyalgia History of benign breast biopsy 2009 AND 2014 Hyperlipidemia Hypothyroidism Left hemiplegia Left knee pain Left lumbar radiculitis Lumbar spinal stenosis Multifactorial multilevel L4-5 and L5-S1 Lymphedema Migraine Neurogenic claudication due to lumbar spinal stenosis Osteoarthritis deformans Paresthesia of hand, bilateral Peripheral neuropathy Posterior right knee pain Restless leg syndrome Right lumbar radiculopathy Thrombophlebitis Ventral hernia Surgical History H/O colonoscopy (03/24/13) Diverticulosis, repeat [address] Ye H/O: hysterectomy (~1989) H/O: knee surgery (~2008) Left total knee arthroplasty History of cardiac radiofrequency ablation HX OF SVT, PROCEUDRE DONE 04/2018 AT [place]. FOLLOWS WITH DR. PEOPLES. History of esophagogastroduodenoscopy (EGD) (03/24/13) Reflux esophagitis, dilation of esophagus, biopsy done Dr. 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 Required: No Beliefs That Will Affect Care: Advent Advent Beliefs: Any Bible Rastafarian marital status: Current Living Situation: Spouse current occupational status: retired Other Information That Helps Us Care for You: No Feels Safe at Home: Yes during the past year weight has: decreased > 10 lbs Assistive Devices: Glasses Review of Systems Review of Systems: Moderate distress and fatigue no headache, no visual changes no speech or swallowing issues no chest pain, pressure or palpitations no shortness of breath, cough or wheezes no abdominal pain, nausea or vomiting, diarrhea or constipation no dysuria, hematuria or frequency radicular right leg pain lateral upper thigh to the inner lower leg no back pain, CVA tenderness , pain worse with flexion? no bruising, bleeding or rashes no focal signs of weakness or numbness or altered sensation no complaints of anxiety or depression.. Physical Exam Physical Exam: The patient appeared well nourished and normally developed. Vital signs as documented. Head exam is normocephalic atraumatic Neck is without JVD, thyromegaly, or carotid bruits. Lungs are clear to auscultation, no focal loss of breath sounds Cardiac exam, Rhythm is regular.. No murmurs, rubs or gallops. Abdominal exam reveals normal bowel sounds, soft non tender, no masses Extremities are nonedematous and both lower extremities have minor varicosities, point tender bilaterally at the medial hamstring insertions, R>L. the has a small "knot" on the inner lower leg on the right, no issues in the upper thigh. no pain to SLR, reflexes are normal Neurologic exam is alert and oriented, no focal loss of strength does have some minor gross distal paresthesias Skin is without bruises or rashes Psychologically is without concerns for anxiety or depression Results & Data Results & Data ([facility]) Vital Signs (Past 12 Hours) Vital Signs Temp Pulse Resp BP Pulse Ox 04/24/21 16:03 98.6 F 83 18 135/70 92 Code Status & VTE Plan VTE Prophylaxis Plan VTE Prophylaxis will be ordered: Yes PG Care Time/CCT Total # of Minutes Spent Total Time Spent with Patient: Total time spent is greater than 50% in coordination of care (as documented) at patient's floor/unit and/or counseling patient: Coding Level of Care Code 53003 Initial Inpt Care Lvl 2 Diagnoses Right lumbar radiculopathy M54.16 Hypertension I10 Nocturnal hypoxemia G47.34 Peripheral neuropathy G62.9 Peripheral neuropathy type: polyneuropathy, unspecified Hypothyroidism E03.9 Hyperlipidemia E78.5 (1) Peripheral neuropathy Peripheral neuropathy type: polyneuropathy, unspecified Qualified Code(s): G62.9 - Polyneuropathy, unspecified
[2021-04-24] MEDS ORDERED: PATIENT'S HEIGHT AND/OR WEIGHT NEEDED SCH (17:30)
[2021-04-24] MEDS ORDERED: Nursing to Pharmacy Communication SCH (17:45)
[2021-04-24] MEDS: PRAMIPEXOLE DIHYDROCHLO 0.5 MG TAB PO SCH (18:35)
[2021-04-24 19:37] LABS: Basophils # (auto) 0.02 K/uL (0-0.2); Basophils % (auto) 0.2 %; Eosinophils # (auto) 0.13 K/uL (0-0.5); Eosinophils % (auto) 1.5 %; Hemoglobin 13.1 g/dL (12.0-16.0); Immature Granulocytes # (auto) 0.03 K/uL (0.00-0.02); Immature Granulocytes % (auto) 0.3 %; Lymphocytes # (auto) 1.61 K/uL (1.2-3.4); Lymphocytes % (auto) 18.6 %; Mean Corpuscular Hemoglobin 29.6 pg (25-34); Mean Corpuscular Volume 92.6 fL (80-100); Mean Platelet Volume 9.5 fL (7.4-10.4); Monocytes # (auto) 0.45 K/uL (0.11-0.59); Monocytes % (auto) 5.2 %; Neutrophils % (auto) 74.2 %; Platelet Count 251 K/uL (130-400); RDW Coefficient of Variation 14.7 % (11.5-14.5); RDW Standard Deviation 49.4 fL (36.4-46.3); Red Blood Count 4.43 M/uL (4.2-5.4); White Blood Count 8.64 K/uL (4.8-10.8)
[2021-04-24 20:00] LABS: Albumin Level 3.3 gm/dl (3.4-5.0); BUN Creatinine Ratio 22.6 (10-20); Calcium 8.7 mg/dl (8.5-10.1); Creatinine Clr Calc Pharmacy 87.7 ml/min; Est GFR (African American) 103.7 ml/min; Est GFR (Non-African American) 89.5 ml/min; Magnesium 2.3 mg/dl (1.8-2.4); Potassium 4.4 mmol/L (3.5-5.1)
[2021-04-24 20:08] LABS: Albumin Globulin Ratio 1.1 (0.9-2); Bilirubin,Total 0.3 mg/dl (0.2-1); Thyroid Stimulating Hormone 0.611 uIu/ml (0.300-4.500); Total Protein 6.3 gm/dl (6.4-8.2)
[2021-04-24] MEDS: oxyCODONE HCL IR 5 MG TAB (IMMEDIATE RELEASE) PO PRN (20:27)
[2021-04-24] MEDS: ACETAMINOPHEN 500 MG TAB PO SCH (20:27)
[2021-04-24] MEDS: traZODone HCL 100 MG TAB PO SCH (20:28)
[2021-04-24] MEDS: GABAPENTIN 300 MG CAP PO SCH (20:28)
[2021-04-24 20:30] LABS: Folate (Folic Acid) 12.9 ng/ml (>5.38)
[2021-04-24 20:40] LABS: Lyme Ab IgG w/WB Rflx Negative (Negative); Lyme Ab IgM w/WB Rflx Negative (Negative)
[2021-04-24 22:32] LABS: Appearance Urine Clear (Clear); Bacteria Urine Automated 4+ (Negative); Bilirubin Urine Negative (Negative); Blood Urine Negative (Negative); Cast Urine Automated 0 /lpf (0-5); Color Urine Yellow; Glucose Urine UA Negative (Negative); Ketones Urine Negative (Negative); Leukocyte Esterase Urine Trace (Negative); Nitrite Urine Negative (Negative); Protein Urine Negative (Negative); RBC Urine Automated 0-4 /hpf (0-4); Specific Gravity Urine 1.007 (1.000-1.030); Urobilinogen Urine Negative (Negative); pH Urine 7.5 (4.5-7.5)
[2021-04-25] MEDS: oxyCODONE HCL IR 5 MG TAB (IMMEDIATE RELEASE) PO PRN ×2 (05:37→22:27)
[2021-04-25] MEDS: LEVOTHYROXINE SODIUM 150 MCG TABLET PO SCH (05:37)
[2021-04-25 08:57] LABS: Estimated Average Glucose 114 mg/dl; Hemoglobin A1C 5.6 % (4.5-5.6)
[2021-04-25] MEDS: ACETAMINOPHEN 500 MG TAB PO SCH ×3 (09:06→20:29)
[2021-04-25] MEDS: DICLOFENAC SOD 1% GEL 100 GM TUBE EXT SCH ×3 (09:06→20:31)
[2021-04-25] MEDS: ASPIRIN 81 MG ECTAB PO SCH (09:06)
[2021-04-25] MEDS: MELOXICAM 7.5 MG TAB PO SCH (09:07)
[2021-04-25] MEDS: LOSARTAN/HCTZ 50/12.5MG TAB PO SCH (09:07)
[2021-04-25] MEDS: PANTOprazole 40 MG TAB PO SCH (09:07)
[2021-04-25] MEDS: DULoxetine HCL 60 MG CAP PO SCH (09:07)
[2021-04-25] MEDS: GABAPENTIN 300 MG CAP PO SCH ×2 (09:07→20:32)
--- NOTE | 2021-04-25 09:44 | Pain Management Consultation ---
Date of Consultation April 25, 2021 Assessment & Plan (1) Posterior right knee pain: * Predominant pain generator is right posterior knee region. There is no obvious lumbar radicular component to her current symptoms. There are no new findings on lumbar MRI to suggest her current pain pattern. Knee MRI suggest fairly significant medial meniscal tearing/maceration. There is also prominence of the popliteal vein and surrounding infiltration appreciated. Will request right lower extremity Doppler ultrasound to rule out superficial thrombus or DVT with further recommendations pending results * Would not recommend any interventional treatment at this time * Will have the patient resume Voltaren gel applied to the knee 3 times daily * Recommend ongoing orthopedic evaluation/consultation due to the extensive tearing/maceration of the medial meniscus Thank you for allowing us to participate in the care of Mrs. Penny History of Present Illness Reason for Consultation: Intractable right lower extremity pain Requesting Physician: Duke Ramos MD Attending Physician: Duke Ramos MD History of Present Illness Mrs. Penny is a 71-year-old who is well-known to the pain service most recently undergoing a right L5-S1 transforaminal SUMMER on 04/03/2021 for treatment of chronic complaints of low back and lumbar radicular pain. The patient reported significant reduction of her right lower extremity radicular pain after the lumbar SUMMER. The patient has been dealing with posterior knee pain over the past few weeks and is being followed/evaluated by [facility] orthopedics. She reported an attempted Cruz's cyst aspiration without success over the past week. She has had persisting complaints of pain in the posterior knee/popliteal fossa region as her predominant pain generator. She denies any significant radicular component to her pain complaints at this time. She has minimal axial low back pain. Patient reported difficulties with sleep due to the aching and throbbing characteristic pain which led to her hospital evaluation and admission. Patient indicates that a venous Doppler was completed in the outpatient setting which was reportedly within normal limits. Patient denies any foot drop or episodes of falling. She has no bowel or bladder incontinence. Patient denies further constitutional complaints. Plan of care discussed with Dr. Lolis Dang. Allergies Allergy/AdvReac Type Severity Reaction Status Date / Time bee venom protein (honey bee) Allergy Severe ANAPHYLAXIS Verified 04/23/21 13:14 Home Medications Medication Instructions Recorded Confirmed Type acetaminophen 500 mg tablet 1,000 mg PO Q8H PRN tab 07/25/18 04/24/21 History calcium carbonate-vitamin D3 500 1 tab PO QAM tab 07/25/18 04/24/21 History mg (1,250 mg)-600 unit tablet diclofenac sodium 1 % topical gel 2 gm TOP QID PRN 07/25/18 04/24/21 History epinephrine 0.3 mg/0.3 mL 0.3 mg IM Q15M PRN 07/25/18 04/24/21 History injection, auto-injector krill 1 cap PO QAM cap 07/25/18 04/24/21 History zgi-jq5-uxr-dhi-sw2-esr-astax 1,500 mg-165 mg-67.5 mg capsule levothyroxine 150 mcg tablet 150 mcg PO QAM 07/25/18 04/24/21 History omeprazole 20 mg capsule,delayed 20 mg PO QAM 07/25/18 04/24/21 History release meloxicam 7.5 mg tablet 7.5 mg PO DAILY #30 tab 10/02/19 04/24/21 Rx aspirin 81 mg tablet,delayed 81 mg PO DAILY 12/04/19 04/24/21 History release cholecalciferol (vitamin D3) 125 125 mcg PO DAILY 10/04/20 04/24/21 History mcg (5,000 unit) capsule losartan 50 mg-hydrochlorothiazide 1 tab PO DAILY 10/04/20 04/24/21 History 12.5 mg tablet duloxetine 60 mg capsule,delayed 120 mg PO QAM cap 12/25/20 04/24/21 History release gabapentin 300 mg capsule 300 mg PO .COMPLEX cap 12/25/20 04/24/21 History pramipexole 0.125 mg tablet 2 mg PO QPM tab 12/25/20 04/24/21 History trazodone 100 mg tablet 100 mg PO DAILY 02/12/21 04/24/21 History Patient History Medical History Acid reflux Chronic knee pain after total replacement of left knee joint Classic migraine with aura Fibromyalgia History of benign breast biopsy 2009 AND 2014 Hyperlipidemia Hypothyroidism Left hemiplegia Left knee pain Left lumbar radiculitis Lumbar spinal stenosis Multifactorial multilevel L4-5 and L5-S1 Lymphedema Migraine Neurogenic claudication due to lumbar spinal stenosis Osteoarthritis deformans Paresthesia of hand, bilateral Peripheral neuropathy Restless leg syndrome Right lumbar radiculopathy Thrombophlebitis Ventral hernia Surgical History H/O colonoscopy (03/24/13) Diverticulosis, repeat [address] Ye H/O: hysterectomy (~1989) H/O: knee surgery (~2008) Left total knee arthroplasty History of cardiac radiofrequency ablation HX OF SVT, PROCEUDRE DONE 04/2018 AT [place]. FOLLOWS WITH DR. PEOPLES. History of esophagogastroduodenoscopy (EGD) (03/24/13) Reflux esophagitis, dilation of esophagus, biopsy done Dr. Ye History of left hip replacement History of left knee replacement Hx of tonsillectomy S/P breast biopsy, left (~2009) 2009 and 2014 Status post biopsy of thyroid gland 2011 Family History Sister Breast cancer Son Colorectal cancer Social History Smoking Status: Never smoker Second Hand Exposure: No; Hx Alcohol Use: No Hx Substance Use: No Preferred Language: Angolan Communication Ability: Effective Visual Impairment: No Limitations Communication Center Coordinator Required: No Beliefs That Will Affect Care: Worship Worship Beliefs: [employer]Box Yarsanism marital status: Current Living Situation: Spouse current occupational status: retired Other Information That Helps Us Care for You: No Feels Safe at Home: Yes during the past year weight has: decreased > 10 lbs Assistive Devices: Glasses Physical Exam Physical Exam: General: Patient lying quietly in exam room in no acute d istress. Speech and thought process appropriate. Mood and affect appropriate. Cognition intact. Head: Normocephalic and atraumatic. ENT: No evidence of nasal or oral mucosal lesions. Mucous membranes are moist. Eyes: Pupils equal round reactive to light. Neck: Supple without adenopathy and full range of motion. Chest: Nontender to palpation of the costosternal junction. Abdomen: Soft and nondistended. No organomegaly. Bowel sounds active. Back/spine: Loss of lordosis. Nontender over the midline. No focal facet or SI joint tenderness. Some generalized lumbosacral tenderness to palpation which is nonfocal. Nontender in the paravertebral musculature. Patient is tender in the gluteal region bilaterally. No appreciable spasm or myoneural trigger points. Lower extremities: Patient has loss of 5-10 degrees of right knee extension with increased discomfort in the popliteal region. There is no appreciable edema. Minimal tenderness over the medial joint line. Patient has tenderness with flexion with limitation approximately 95 degrees. Patient is tender to direct outpatient in the popliteal fossa predominantly medially with and apparent underlying tortuous vein. No appreciable edema. Minimal gastroc tenderness to palpation. No warmth appreciated of the right knee. Negative Homans' sign. Left lower extremity without visible abnormality. Well-healed anterior surgical incision status post TKA. Slightly diminished range of motion with flexion/extension. SLR negative bilaterally. Neurologic: Cranial nerves grossly intact. Ambulatory function not witnessed. Results (Pain Clinic) Diagnostic Review MRI Findings: [facility], [id number] Magnetic Resonance Report Patient: ROBERT PENNY Date: 04/24/21MR#: [id number]: [address] Acct ID:[id number]: Date: 1950[facility] Zip: [place], [place] [address]Xhw: 71Location: 3ESex: FRoom/Bed: [id number] Phy: Duke Ramos MDDiagnosis: INTRACTABLE BACK PAINPri Phy: Marci Navarro D.O.Service Date: 04/24/21Fa Phy:Interpreting Phy: Napoleon Oliveros [facility] Phy: Duke Ramos MD Ordering Phy: Duke Ramos MD cc: ~ MRI OF LUMBAR SPINE WITHOUT IV CONTRAST CLINICAL HISTORY: Chronic low back pain. Right lower extremity radiculopathy. COMPARISON STUDY: MRI of lumbar spine dated 10/07/2020. Abdominal CT dated 04/17/2021. TECHNIQUE: MRI of lumbar spine is performed utilizing various T1 and T2-weighted sequences in the axial and sagittal planes. IV contrast was not administered for this examination. FINDINGS: Lumbar spine: Vertebral body height is maintained at the lumbar spine. There is minimal anterolisthesis at L4-L5 and L5-S1. Alignment is otherwise preserved. Anterior and lateral marginal osteophytes are seen throughout. The transverse and spinous processes are grossly intact. There is no evidence of spondylolysis. Question previous left hemilaminectomy at L4 and L5. Large hemangiomas are seen in the bodies of T12 and L3. No destructive bony lesion is seen. Intervertebral discs: Degenerative disc desiccation and mild loss of height is seen throughout the lumbar spine. Spinal cord: The visualized spinal cord is normal in morphology and signal intensity. The conus medullaris terminates at the T12-L1 interspace. The nerve roots of the cauda equina are normal in morphology. L1-L2: There is a small posterior disc bulge. No significant acquired compromise of the central canal is identified. The neural foramina appear patent. L2-L3: There is broad-based posterior disc bulge which abuts the transiting nerve roots. In conjunction with hypertrophy of the ligamentum flavum there is mild central canal stenosis at this level with a minimum AP diameter of 8 mm. There is bilateral subarticular stenosis, which may abut the exiting bilateral L2 nerve roots. In conjunction with facet arthropathy there is mild bilateral neural foraminal stenosis. L3-L4: There is broad-based posterior disc bulge with annular fissure. This abuts the transiting nerve roots. In conjunction with hypertrophy of the liga mentum flavum there is mild to moderate central canal stenosis with a minimum AP diameter of 7.5 mm. There is mild bilateral subarticular stenosis. This may abut the exiting right L3 nerve root. In conjunction with facet arthropathy there is mild to moderate right neural foraminal stenosis. L4-L5: There is minimal posterior disc bulge with annular fissure. There is bilateral subarticular stenosis, which may abut the exiting bilateral L4 nerve roots. Facet arthropathy contributes to mild to moderate bilateral neural foraminal stenosis. L5-S1: There is left lateral disc bulge. This causes subarticular stenosis and impinges on the transiting left S1 nerve root and the exiting left L5 nerve root. The central canal is clear. In conjunction with facet arthropathy there is moderate to severe left and mild right neural foraminal stenosis. Sacrum: The visualized sacrum is normal in morphology and signal intensity. Soft tissues: There is fatty atrophy of the paraspinous musculature. The retr operitoneal structures are grossly unremarkable but incompletely evaluated. IMPRESSION: 1. Lumbosacral spondylosis as above. See discussion for detailed level by level analysis. 2. No destructive bony process is identified. Dictated: 04/25/2021 8:57 AM Transcribed: 04/25/2021 10:04 AM Iliana [id number] [email or web address] Electronically signed by: Napoleon Oliveros M.D. 04/25/2021 10:06 AM Dictated: 04/25/21 [id number]: 04/25/21 1004 [facility], [id number] Magnetic Resonance Report Patient: ROBERT PENNY Date: 04/23/21MR#: [id number]: [address] Acct ID:[id number]: Date: 1950[facility] Zip: [place], [place] [address]Jib: 71Location: MRISex: FRoom/Bed:Att Phy: Ehsan Landrum, MARIAHiagnosis: RT KNEE, CRUZ CYSTPri Phy: Marci NavarroDRicoService Date: 04/23/21Fa Phy:Interpreting Phy: Napoleon Oliveros MDAdmit Phy: Ordering Phy: Ehsan Landrum DO cc: ~ MRI OF THE RIGHT KNEE CLINICAL HISTORY: Right knee pain. The patient is posterior and of several weeks duration. COMPARISON STUDY: Radiographs of the right knee dated 01/15/2014. MRI of the right knee dated 11/22/2015. TECHNIQUE: MRI of the right knee was performed utilizing proton density, T1, and T2-weighted sequences in the axial, sagittal, coronal planes. IV contrast was not administered for this examination. FINDINGS: Menisci: There is intrasubstance tearing of the lateral meniscus. There is extensive tearing/maceration of the medial meniscus. The anterior horn and body are truncated/absent, and the meniscus is anteriorly extruded. The posterior horn is somewhat maintained noting degenerative tearing. No flipped fragment is clearly identified. Ligaments: There is mucoid degeneration of the anterior cruciate ligament. The cruciate ligaments appear intact. The medial and lateral collateral ligaments are within normal limits. Extensor mechanism: The extensor mechanism is intact. Hoffa's fat pad is normal in appearance. Articular cartilage and bone: There is extensive full thickness cartilage loss along the weightbearing surface in the medial compartment with associated reactive marrow edema identified peripherally within the medial femoral condyle and the medial tibial plateau. Subchondral cyst formation is noted in the tibial plateau. There is no MRI evidence of fracture. There are large marginal osteophytes. There is a 6 mm focus of greater than 50% thinning of the articular cartilage along the weightbearing surface in the lateral compartment. Additional foci of Full thickness fissuring are identified. There is no reactive marrow edema. There is moderate cartilage patella, with nearly full thickness cartilage loss identified along the medial patellar facet near the apex. There is only mild reactive marrow edema. The articular cartilage of the lateral facet is maintained. Joint effusion: There is a small joint effusion. Soft tissues: Mild superficial and deep soft tissue edema is present around the knee. There is generalized atrophy of the regional musculature. Cystic change/fluid is noted along the course of the popliteus tendon. The popliteal vein appears thickened with mild surrounding edema. IMPRESSION: 1. The popliteal vein appears thickened/distended and there is mild surrounding infiltration. Given the history of posterior knee pain a right lower extremity venous ultrasound is recommended to assess for deep venous thrombosis. 2. There is extensive tearing/maceration of the medial meniscus. The anterior horn and body are truncated and anteriorly extruded. 3. There is intrasubstance tearing of the lateral meniscus. 4. There is extensive full-thickness cartilage loss in the medial compartment with associated reactive marrow edema. 5. Milder degenerative change is noted in the lateral and patellofemoral compartments as above. 6. There is mucoid degeneration of the anterior cruciate ligament. 6. Joint effusion and soft tissue edema. ACT 112: Negative or not required by law. Electronically signed by: Napoleon Oliveros M.D. 04/23/2021 8:28 PM Dictated: 04/23/21 1645Transcribed: 04/23/21 1654
--- NOTE | 2021-04-25 09:46 | Ultrasound Report ---
US venous doppler LE RT CLINICAL HISTORY: Right popliteal pain, r/o dvt COMPARISON STUDY: March 2018 FINDINGS: Grayscale, color-flow, Doppler spectral waveform analysis was performed. No thrombus is visualized in the common femoral superficial femoral or popliteal vein. There is chron ic fibrin stranding within the greater saphenous vein of the distal thigh. There is a superficial thrombus within the proximal medial calf measuring 14 cm in length. There is acute DVT within one of 2 posterior tibial veins. IMPRESSION: 1. Acute posterior tibial vein DVT 2. Superficial thrombus within the proximal medial calf vein extending over a length of 14 cm 3. Chronic fibrin stranding within the greater saphenous vein distal thigh ACT 112: Negative or not required by law. Electronically signed by: Jose Manuel Manzanares M.D. 04/25/2021 9:44 AM
--- NOTE | 2021-04-25 10:07 | Magnetic Resonance Report ---
MRI OF LUMBAR SPINE WITHOUT IV CONTRAST CLINICAL HISTORY: Chronic low back pain. Right lower extremity radiculopathy. COMPARISON STUDY: MRI of lumbar spine dated 10/07/2020. Abdominal CT dated 04/17/2021. TECHNIQUE: MRI of lumbar spine is performed utilizing various T1 and T2-weighted sequences in the axi al and sagittal planes. IV contrast was not administered for this examination. FINDINGS: Lumbar spine: Vertebral body height is maintained at the lumbar spine. There is minimal anterolisthes is at L4-L5 and L5-S1. Alignment is otherwise preserved. Anterior and lateral marginal osteophytes ar e seen throughout. The transverse and spinous processes are grossly intact. There is no evidence of s pondylolysis. Question previous left hemilaminectomy at L4 and L5. Large hemangiomas are seen in the bodies of T12 and L3. No destructive bony lesion is seen. Intervertebral discs: Degenerative disc desiccation and mild loss of height is seen throughout the deepti mbar spine. Spinal cord: The visualized spinal cord is normal in morphology and signal intensity. The conus medul toan terminates at the T12-L1 interspace. The nerve roots of the cauda equina are normal in morpholo gy. L1-L2: There is a small posterior disc bulge. No significant acquired compromise of the central canal is identified. The neural foramina appear patent. L2-L3: There is broad-based posterior disc bulge which abuts the transiting nerve roots. In conjuncti on with hypertrophy of the ligamentum flavum there is mild central canal stenosis at this level with a minimum AP diameter of 8 mm. There is bilateral subarticular stenosis, which may abut the exiting b ilateral L2 nerve roots. In conjunction with facet arthropathy there is mild bilateral neural foramin al stenosis. L3-L4: There is broad-based posterior disc bulge with annular fissure. This abuts the transiting nerv e roots. In conjunction with hypertrophy of the ligamentum flavum there is mild to moderate central c anal stenosis with a minimum AP diameter of 7.5 mm. There is mild bilateral subarticular stenosis. Th is may abut the exiting right L3 nerve root. In conjunction with facet arthropathy there is mild to m oderate right neural foraminal stenosis. L4-L5: There is minimal posterior disc bulge with annular fissure. There is bilateral subarticular st enosis, which may abut the exiting bilateral L4 nerve roots. Facet arthropathy contributes to mild to moderate bilateral neural foraminal stenosis. L5-S1: There is left lateral disc bulge. This causes subarticular stenosis and impinges on the transi ting left S1 nerve root and the exiting left L5 nerve root. The central canal is clear. In conjunctio n with facet arthropathy there is moderate to severe left and mild right neural foraminal stenosis. Sacrum: The visualized sacrum is normal in morphology and signal intensity. Soft tissues: There is fatty atrophy of the paraspinous musculature. The retroperitoneal structures a re grossly unremarkable but incompletely evaluated. IMPRESSION: 1. Lumbosacral spondylosis as above. See discussion for detailed level by level analysis. 2. No destructive bony process is identified. Dictated: 04/25/2021 8:57 AM Transcribed: 04/25/2021 10:04 AM Iliana [id number] [email or web address] Electronically signed by: Napoleon Oliveros M.D. 04/25/2021 10:06 AM
[2021-04-25] MEDS ORDERED: ENOXAPARIN 1 MG/KG SC SCH (11:30)
[2021-04-25] MEDS: RIVAROXABAN 15 MG TAB PO SCH ×2 (12:42→20:31)
--- NOTE | 2021-04-25 17:01 | Hospitalist Progress Note ---
Date of Service April 25, 2021 Assessment & Plan (1) Right leg DVT: Patient is acute DVT in her right leg this will be treated with Xarelto therapy initiating therapy today. Due to her pain we will try to see if she is a febrile response to pain once anticoagulation is begun Doppler study 04/25/2021 IMPRESSION: 1. Acute posterior tibial vein DVT 2. Superficial thrombus within the proximal medial calf vein extending over a length of 14 cm 3. Chronic fibrin stranding within the greater saphenous vein distal thigh (2) Right leg pain: Pt is too uncomfortable to sleep at home, she has history of previous lumbar issues, found to have DVT which likely is exacerbating some of her pain use scheduled tylenol, topical voltaren continue meloxicam and use neurontin plus cymbalta this pain is not completely consistent with lumbar radiculopathy but is intractable and life altering for patient pt is known to pain management and I did see the patient feeling her pain is mostly from derangement of her knee and acute DVT Negative Lyme, A1c 5.6, iron is normal, CRP is 0.6 (normal is 0.29 or less) thyroid and vitamin B levels are replete. Given her complaints of urine issues urinalysis is trace positive esterase and urine is growing greater than 100,000 colonies gram-negative bacilli MRI of the right knee performed 04/23/2021 IMPRESSION: 1. The popliteal vein appears thickened/distended and there is mild surrounding infiltration. Given the history of posterior knee pain a right lower extremity venous ultrasound is recommended to assess for deep venous thrombosis. Ultrasound performed [facility] in [facility] negative 2. There is extensive tearing/maceration of the medial meniscus. The anterior horn and body are truncated and anteriorly extruded. 3. There is intrasubstance tearing of the lateral meniscus. 4. There is extensive full-thickness cartilage loss in the medial compartment with associated reactive marrow edema. 5. Milder degenerative change is noted in the lateral and patellofemoral compartments as above. 6. There is mucoid degeneration of the anterior cruciate ligament. 7. Joint effusion and soft tissue edema MRI lumbar spine 04/24/21 L1-L2: There is a small posterior disc bulge. No significant acquired com promise of the central canal is identified. The neural foramina appear patent. L2-L3: There is broad-based posterior disc bulge which abuts the transiting nerve roots. In conjunction with hypertrophy of the ligamentum flavum there is mild central canal stenosis at this level with a minimum AP diameter of 8 mm. There is bilateral subarticular stenosis, which may abut the exiting bilateral L2 nerve roots. In conjunction with facet arthropathy there is mild bilateral neural foraminal stenosis. L3-L4: There is broad-based posterior disc bulge with annular fissure. This abuts the transiting nerve roots. In conjunction with hypertrophy of the ligamentum flavum there is mild to moderate central canal stenosis with a minimum AP diameter of 7.5 mm. There is mild bilateral subarticular stenosis. This may abut the exiting right L3 nerve root. In conjunction with facet arthropathy there is mild to moderate right neural foraminal stenosis. L4-L5: There is minimal posterior disc bulge with annular fissure. There is bilateral subarticular stenosis, which may abut the exiting bilateral L4 nerve roots. Facet arthropathy contributes to mild to moderate bilateral neural foraminal stenosis. L5-S1: There is left lateral disc bulge. This causes subarticular stenosis and impinges on the transiting left S1 nerve root and the exiting left L5 nerve root. The central canal is clear. In conjunction with facet arthropathy there is moderate to severe left and mid right neural foraminal stenosis To this end we will continue to use meloxicam plus oral oxycodone as needed (3) Hypertension: continue losartan/hctz (4) Nocturnal hypoxemia: pt is supposed to wear cpap or Nippv, will check nocturnal oximetry to determine how significant this is (5) Peripheral neuropathy: unclear if from the lumbar spine issues, checking lyme, not significant will check aic in am (6) Hypothyroidism: continues on synthroid check tsh (7) Hyperlipidemia: Pt has fatty liver seen on imaging, did recently change to vegan diet and lost 25# (8) Urinary tract infection: Will treat with Cipro 250 twice daily for 3 days Admission and Anticipated Discharge Date Admission Date: April 24, 2021 Subjective Patient has improvement of pain mostly from oxycodone. Found to have acute DVT which likely could be exacerbating some of her pain initiated on Xarelto therapy.. Pain management did see the patient feels her pain is multifactorial including arthritic pain of her knee and newfound DVT. Do not feel there is a radicular component although her MRI of her back is without direct focal compression there is some changes with spinal canal narrowing and foraminal narrowing noted Review of Systems Review of Systems: Moderate distress and fatigue no headache, no visual changes no speech or swallowing issues no chest pain, pressure or palpitations no shortness of breath, cough or wheezes no abdominal pain, nausea or vomiting, diarrhea or constipation no dysuria, hematuria or frequency radicular right leg pain lateral upper thigh to the inner lower leg no back pain, CVA tenderness , pain worse with flexion? no bruising, bleeding or rashes no focal signs of weakness or numbness or altered sensation no complaints of anxiety or depression.. Physical Exam Physical Exam: The patient appeared well nourished and normally developed. Vital signs as documented. Head exam is normocephalic atraumatic Neck is without JVD, thyromegaly, or carotid bruits. Lungs are clear to auscultation, no focal loss of breath sounds Cardiac exam, Rhythm is regular.. No murmurs, rubs or gallops. Abdominal exam reveals normal bowel sounds, soft non tender, no masses Extremities are nonedematous and both lower extremities have minor varicosities, point tender bilaterally at the medial hamstring insertions, R>L. the has a small "knot" on the inner lower leg on the right, no issues in the upper thigh. no pain to SLR, reflexes are normal Neurologic exam is alert and oriented, no focal loss of strength does have some minor gross distal paresthesias Skin is without bruises or rashes Psychologically is without concerns for anxiety or depression Results & Data Results & Data ([facility]) Vital Signs (Past 12 Hours) Vital Signs Temp Pulse Resp BP Pulse Ox 04/25/21 15:17 98.1 F 80 16 119/71 91 04/25/21 09:42 97.5 F L 82 16 111/67 95 PG Care Time/CCT Total # of Minutes Spent Total Time Spent with Patient: Total time spent is greater than 50% in coordination of care (as documented) at patient's floor/unit and/or counseling patient: Coding Level of Care Code 77488 Subseq Hosp Care Lvl 2 Diagnoses Right leg DVT I82.401 Right leg pain M79.604 Hypertension I10 Nocturnal hypoxemia G47.34 Peripheral neuropathy G62.9 Peripheral neuropathy type: polyneuropathy, unspecified Hypothyroidism E03.9 Hyperlipidemia E78.5 Urinary tract infection N39.0 (1) Peripheral neuropathy Peripheral neuropathy type: polyneuropathy, unspecified Qualified Code(s): G62.9 - Polyneuropathy, unspecified
[2021-04-25] MEDS: PRAMIPEXOLE DIHYDROCHLO 0.5 MG TAB PO SCH (17:11)
[2021-04-25] MEDS: traZODone HCL 100 MG TAB PO SCH (20:31)
[2021-04-25] MEDS: SULFAMETHOXAZOLE/TRIMETHOPRIM DS 800/160MG TAB PO SCH (20:31)
[2021-04-26] MEDS: oxyCODONE HCL IR 5 MG TAB (IMMEDIATE RELEASE) PO PRN (06:38)
[2021-04-26] MEDS: LEVOTHYROXINE SODIUM 150 MCG TABLET PO SCH (06:38)
[2021-04-26] MEDS: ACETAMINOPHEN 500 MG TAB PO SCH ×2 (08:14→14:21)
[2021-04-26] MEDS: ASPIRIN 81 MG ECTAB PO SCH (08:15)
[2021-04-26] MEDS: DICLOFENAC SOD 1% GEL 100 GM TUBE EXT SCH (08:16)
[2021-04-26] MEDS: DULoxetine HCL 60 MG CAP PO SCH (08:17)
[2021-04-26] MEDS: MELOXICAM 7.5 MG TAB PO SCH (08:18)
[2021-04-26] MEDS: GABAPENTIN 300 MG CAP PO SCH (08:18)
[2021-04-26] MEDS: PANTOprazole 40 MG TAB PO SCH (08:18)
[2021-04-26] MEDS: RIVAROXABAN 15 MG TAB PO SCH (08:18)
[2021-04-26] MEDS: SULFAMETHOXAZOLE/TRIMETHOPRIM DS 800/160MG TAB PO SCH (08:19)
[2021-04-26] MEDS: LOSARTAN/HCTZ 50/12.5MG TAB PO SCH (08:19)
--- NOTE | 2021-04-26 15:38 | Discharge Summary ---
Date of Service April 26, 2021 Principal Diagnosis right le DVT E Coli uti poa mechanical derangement of the right knee lumbar spine degenrative disease Discharge Exam The patient appeared well Vital signs as documented. Lungs are clear to auscultation and appear unlabored Cardiac exam, Rhythm is regular.. No murmurs, rubs or gallops. Abdominal exam reveals normal bowel sounds, soft non tender, no masses Extremities right leg with medial knee pain, no chords, full popliteal area without flucutance Neurologic exam is alert and oriented, no focal loss of strength or sensation Skin is without bruises or rashes Discharge Data Allergies Allergy/AdvReac Type Severity Reaction Status Date / Time bee venom protein (honey bee) Allergy Severe ANAPHYLAXIS Verified 04/23/21 13:14 Consultations 04/25/21 07:19 Consult Pain Management Routine Ordered Studies 04/24/21 16:56 MR lumbar spine wo con Routine 04/25/21 09:00 US venous doppler LE RT Stat Hospital Course (1) Right leg DVT: Patient is acute DVT in her right leg this will be treated with Xarelto therapy initiating therapy 04/25/21. Due to her pain we will try to see if she is a febrile response to pain once anticoagulation is begun Doppler study 04/25/2021 IMPRESSION: 1. Acute posterior tibial vein DVT 2. Superficial thrombus within the proximal medial calf vein extending over a length of 14 cm 3. Chronic fibrin stranding within the greater saphenous vein distal thigh with Xarelto, suggested taking meloxicam only prn and sparingly (2) Right leg pain: Pt is too uncomfortable to sleep at home, she has history of previous lumbar issues, found to have DVT which likely is exacerbating some of her pain use scheduled tylenol, topical voltaren continue meloxicam and use neurontin plus cymbalta this pain is not completely consistent with lumbar radiculopathy but is intractable and life altering for patient pt is known to pain management and I did see the patient feeling her pain is mostly from derangement of her knee and acute DVT Negative Lyme, A1c 5.6, iron is normal, CRP is 0.6 (normal is 0.29 or less) thyroid and vitamin B levels are replete. Given her complaints of urine issues urinalysis is trace positive esterase and urine is growing greater than 100,000 colonies e coli sensitive to bactrim, will compelte 3 day course, may have some impact on pts pain complex MRI of the right knee performed 04/23/2021 IMPRESSION: 1. The popliteal vein appears thickened/distended and there is mild surrounding infiltration. Given the history of posterior knee pain a right lower extremity venous ultrasound is recommended to assess for deep venous thrombosis. Ultrasound performed later in [facility] negative 2. There is extensive tearing/maceration of the medial meniscus. The anterior horn and body are truncated and anteriorly extruded. 3. There is intrasubstance tearing of the lateral meniscus. 4. There is extensive full-thickness cartilage loss in the medial compartment with associated reactive marrow edema. 5. Milder degenerative change is noted in the lateral and patellofemoral compartments as above. 6. There is mucoid degeneration of the anterior cruciate ligament. 7. Joint effusion and soft tissue edema MRI lumbar spine 04/24/21 L1-L2: There is a small posterior disc bulge. No significant acquired compromise of the central canal is identified. The neural foramina appear patent. L2-L3: There is broad-based posterior disc bulge which abuts the transiting nerve roots. In conjunction with hypertrophy of the ligamentum flavum there is mild central canal stenosis at this level with a minimum AP diameter of 8 mm. There is bilateral subarticular stenosis, which may abut the exiting bilateral L2 nerve roots. In conjunction with facet arthropathy there is mild bilateral neural foraminal stenosis. L3-L4: There is broad-based posterior disc bulge with annular fissure. This abuts the transiting nerve roots. In conjunction with hypertrophy of the ligamentum flavum there is mild to moderate central canal stenosis with a minimum AP diameter of 7.5 mm. There is mild bilateral subarticular stenosis. This may abut the exiting right L3 nerve root. In conjunction with facet arthropathy there is mild to moderate right neural foraminal stenosis. L4-L5: There is minimal posterior disc bulge with annular fissure. There is bilateral subarticular stenosis, which may abut the exiting bilateral L4 nerve roots. Facet arthropathy contributes to mild to moderate bilateral neural foraminal stenosis. L5-S1: There is left lateral disc bulge. This causes subarticular stenosis and impinges on the transiting left S1 nerve root and the exiting left L5 nerve root. The central canal is clear. In conjunction with facet arthropathy there is moderate to severe left and mid right neural foraminal stenosis To this end we will continue to use scheduled Tylenol and oral oxycodone as needed (3) Hypertension: continue losartan/hctz (4) Nocturnal hypoxemia: pt is supposed to wear cpap or Nippv, nocturnal desaturation not sub stantial (5) Peripheral neuropathy: unclear if from the lumbar spine issues, ortho spine surgery does not see any immediate threat, will follow in office negative lyme, normal aic (6) Hypothyroidism: continues on Synthroid replete tsh (7) Hyperlipidemia: Pt has fatty liver seen on imaging, did recently change to vegan diet and lost 25# (8) Urinary tract infection: Will treat with bactrim twice daily for 3 days Total Time Total Time Spent Total Time Spent (In Minutes): It required less than 30 minutes to prepare this patient for discharge Discharge Plan Discharge Items Patient Disposition: Home - Self-Care Reason For Visit: INTRACTABLE BACK PAIN Discharge Diagnosis: right leg dvt Activity: Per Instructions section Non-emergency contact: Primary Care Provider Call non-emergency contact if: you have any medication questions and you have a fever Follow-up/Referrals: Marci Navarro DO [Primary Care Provider] - Diet: Regular Addtl Attending Provider Instructions: You also have been diagnosed with a E Coli UTI, will have 3 days of antibiotics there will be a Rx for an additional 2 days or 4 doses sent to pharmacy for your blood clot you will be given a Rx for Xarelto, there will be twice a day for two weeks then once a day for a total of 3 months. Please see orthopedics for follow up for your knee , while you are on the anticoagulant do not use ibuprofen or aleve (naproxen) for your knee pain, also consider only using meloxicam sparingly, use tylenol and the as needed oxycodone Rx to you while on oxycodone watch for constipation, if you have problems with this consider probiotics such as yogurt or over the counter and also consider natural laxatives such as senna or miralax Medication Instructions: Your condition is typically treated with an anticoagulant. Anticoagulants will thin your blood to help prevent new clots. * You should take her medication exactly as directed. * Never skip a dose. * Never take a double dose. If you miss a dose, take it as soon as you remember. Call your Primary Care doctor if you experience any of the following: * Swelling or Pain in your leg * Sudden, continuous pain deep in a muscle * Pain that worsens when you are active or when you stand still for a long time * Chest Pain * Sudden Shortness of Breath * Rapid or pounding heart beat * Fainting * Dizziness * Cough with blood or bloody sputum * Sweating more than normal * Bruises * Heavy or uncontrolled bleeding * Blood in your urine, stool or vomit * Black or tarry stools Caring for Your Self at Home: * Avoid sitting, standing or lying down for long periods without moving your legs and feet * When traveling by car, stop to get out and move around at least once every 3 hours * On long airplane, train or bus rides, get up and move around when possible * If you can't get up, wiggle your toes and tighten your calves to keep your blood moving Follow Up: It is important for you to keep your follow up appointments with your medical provider. Pending Studies at Discharge: No Stand-Alone Forms: [facility], Smoking Cessation Medications and DC Order Prescriptions: New sulfamethoxazole-trimethoprim [Bactrim DS] 800-160 mg Tablet 1 tab PO BID Qty: 4 RF: 0 Xarelto 15 mg Tablet 15 mg PO BID Qty: 28 RF: 0 Xarelto 20 mg tablet 20 mg PO DAILY Qty: 30 RF: 2 oxycodone 5 mg Tablet 5 mg PO Q6H PRN (Reason: pain) Qty: 20 RF: 0 ondansetron HCl [Zofran] 4 mg tablet 4 mg PO TID PRN (Reason: nausea and vomiting) Qty: 20 RF: 0 Continued acetaminophen [Tylenol Extra Strength] 500 mg tablet 1,000 mg PO Q8H PRN (Reason: Pain) RF: 0 levothyroxine [Synthroid] 150 mcg tablet 150 mcg PO QAM RF: 0 omeprazole 20 mg capsule,delayed release(DR/EC) 20 mg PO QAM RF: 0 epinephrine [EpiPen] 0.3 mg/0.3 mL auto-injector 0.3 mg IM Q15M PRN (Reason: Anaphylaxis) RF: 0 diclofenac sodium [Voltaren] 1 % gel 2 gm TOP QID PRN (Reason: Pain) RF: 0 calcium carbonate-vitamin D3 [Os-Cem 500 + D3] 500mg (1,250mg) -600 unit tablet 1 tab PO QAM RF: 0 [id number]-flq-[id number]-pet-[id number] [Krill Oil ([place] 3 and 6)] 1,500-165-67.5 mg capsule 1 cap PO QAM RF: 0 duloxetine [Cymbalta] 60 mg capsule,delayed release(DR/EC) 120 mg PO QAM RF: 0 pramipexole [Mirapex] 0.125 mg tablet 2 mg PO QPM RF: 0 losartan-hydrochlorothiazide 50-12.5 mg tablet 1 tab PO DAILY RF: 0 cholecalciferol (vitamin D3) 125 mcg (5,000 unit) capsule 125 mcg PO DAILY RF: 0 trazodone 100 mg tablet 100 mg PO DAILY RF: 0 aspirin [Aspirin Low Dose] 81 mg tablet,delayed release (DR/EC) 81 mg PO DAILY RF: 0 gabapentin 300 mg capsule 300 mg PO .COMPLEX RF: 0 Changed meloxicam 7.5 mg tablet 7.5 mg PO DAILY PRN (Reason: joint pain) Qty: 30 RF: 2 Discharge Orders: Discharge Order (Routine); Ordered 04/26/21 Ordered By: Duke Perez/Other Patient Handouts: DVT Dc Admission Data Admit Date/Time: 04/24/21 15:28 Attending Provider: Duke Ramos Admit Provider: Duke Ramos Primary Care Provider: Marci Navarro Other Providers: Lolis Dang Other Interventions: Discharge Summary Assessment (RN) Last Done: 04/26/21 14:00 Coding Level of Care Code D/C Day Management <30 mins Diagnoses Right leg DVT I82.401 Right leg pain M79.604 Hypertension I10 Nocturnal hypoxemia G47.34 Peripheral neuropathy G62.9 Peripheral neuropathy type: polyneuropathy, unspecified Hypothyroidism E03.9 Hyperlipidemia E78.5 Urinary tract infection N39.0
--- NOTE | 2021-04-26 16:52 | XRay Report ---
LUMBAR SPINE 4 VIEWS CLINICAL HISTORY: Chronic low back pain. Leg pain. FINDINGS: An AP standing view of the lumbar spine with lateral views of lumbar spine in the neutral, flexion, and extension positions are compared to study dated 06/11/2017 and correlated with MRI of the lumbar spine dated 04/24/2021. The skeletal structures are osteopenic. Vertebral body height is mainta ined throughout the lumbar spine. There is mild anterior wedging of the T12 vertebral body. Minimal r etrolisthesis is noted at L2-L3. There is minimal anterolisthesis at L4-L5. There is 8 mm anterolisth esis at L5-S1. This is unchanged on the flexion/extension views. Alignment is otherwise preserved. Sm all anterior and lateral marginal osteophytes are seen throughout. The transverse and spinous process es appear intact. Mild lumbar levocurvature is centered at L3. Advanced facet arthropathy is noted in the lower lumbar region. There is moderate disc space narrowing at L1-L2 with associated endplate sc lerosis. Mild disc space narrowing is seen at the remaining lumbar levels. The visualized bony pelvis appears intact. Sclerotic change is noted in the sacroiliac joints. A hip arthroplasty is partially imaged on the lateral views. There is no bowel obstruction. Moderate fecal retention is seen througho ut the colon. IMPRESSION: 1. No acute bony abnormality is seen involving the lumbar spine. 2. Osteopenia and spondylotic change as above. 3. There is grade 1 anterolisthesis at L5-S1. There is no further bony subluxation on the flexion/ext ension views. Dictated: 04/26/2021 12:12 PM Transcribed: 04/26/2021 4:42 PM Purnima [id number] [email or web address] Electronically signed by: Napoleon Oliveros M.D. 04/26/2021 4:51 PM
== END 2021-04-26 14:15 | disposition home or self-care (01) | DRG 300 ==
LOC: 3E 15:28